=== PATIENT | female | born 1955 | race Caucasian/White ===

== ENCOUNTER 2019-06-18 17:28 | Inpatient (IN) | payer OTHER, SELFPAY ==
--- NOTE | 2019-06-18 | DI.ECHO.S_ITS ---
[facility]+ [facility] +---------+ : : [address] : : : : [id number] : : : : Phone: [phone] Echocardiogram Report + + :Name: RAMIRO FERNANDEZ Study Date: 06/20/2019 Height: 62 in : :Hospital Weight: 112 lb : : Gender: Female BSA: 1.5 m2 : :: 1955 Age: 64 yrs BP: 138/102 mmHg: :Reason For Study: TIA : :Ordering Physician: Bhumika : :Hospitalist Performed By: LRF : :Referring: LUIS GUZMAN : + + Interpretation Summary The atrial septum is aneurysmal. Contrast injection shows early passage of a trivial amount of bubbles from right to the left, likely via a small PFO. The left ventricle is normal in size and wall thickness. The left ventricular ejection fraction is normal. Left ventricular wall motion is normal. Diastolic parameters suggest a relaxation abnormality of the left ventricle, consistent with probable normal filling pressures. The right ventricle is normal in size and function. The right ventricular systolic pressure is estimated to be at least 21 mmHg based on an estimated right atrial pressure of 3 mm Hg. No hemodynamically significant valvular abnormalities. There is no prior echocardiogram noted for this patient. Procedure: A two-dimensional transthoracic echocardiogram with color flow and Doppler was performed. The study quality was technically adequate. There is no prior echocardiogram noted for this patient. The injection was performed through an intravenous line in the right arm. A saline contrast injection was performed to assess for cardiac shunting. The patient was in sinus bradycardia with heart rates between 52-66 bpm during the exam. Left Ventricle: The left ventricle is normal in size and wall thickness. The ejection fraction is estimated to be 55-60%. The left ventricular ejection fraction is normal. Left ventricular wall motion is normal. Diastolic parameters suggest a relaxation abnormality of the left ventricle, consistent with probable normal filling pressures. Right Ventricle: The right ventricle is normal in size and function. Atria: Both atria are normal in size. The atrial septum is aneurysmal. Contrast injection shows early passage of a trivial amount of bubbles from right to the left, likely via a small PFO. Mitral Valve: The mitral valve is normal in structure and function. There is mild mitral regurgitation. Aortic Valve: The aortic valve is trileaflet. The aortic valve opens well. No aortic regurgitation is present. Tricuspid Valve: The tricuspid valve is normal in structure and function. The right ventricular systolic pressure is estimated to be at least 21 mmHg based on an estimated right atrial pressure of 3 mm Hg. There is mild tricuspid regurgitation. Pulmonic Valve: The pulmonic valve is normal in structure and function. There is mild pulmonic regurgitation. Great Vessels: The aortic root is normal size. The aortic arch is normal in size. The ascending aorta is normal in size. The IVC is of normal diameter and collapses greater than 50% with a sniff. This suggests a low right atrial pressure of 3 mm Hg. Pericardium/ Pleura There is no pericardial effusion. MMode/2D Measurements & Calculations LVIDd: 4.2 cm LVOT diam: 1.9 cm LVIDs: 3.0 cm Ao root diam: 2.6 cm FS: 28.1 % asc Aorta Diam: 2.6 cm EPSS: 0.60 cm Ao Arch Diam (Prox Trans): 2.3 cm IVSd: 0.66 cm LVPWd: 0.49 cm LV amador. diameter/BSA (cm/m^2): 2.8 LV sys. diameter/BSA (cm/m^2): 2.0 LA A2 area: 15.9 cm2 RA long axis: 4.4 cm LA A4 area: 14.8 cm2 RA area: 12.8 cm2 LA length (vol): 4.1 cm RA vol: 32.2 ml LA vol: 48.4 ml RA : 21.5 ml/m2 LA vol index: 32.4 ml/m2 IVC diam: 1.2 cm RVD1 (basal): 2.5 cm RVD2 (mid): 1.9 cm TAPSE: 2.2 cm Doppler Measurements & Calculations Ao V2 max: 122.5 cm/sec LVOT Max Yosi: 107.4 cm/sec Ao V2 mean: 80.6 cm/sec LV V1 max P.6 mmHg Ao max P.0 mmHg LV V1 VTI: 21.1 cm Ao mean P.1 mmHg MICHELLE(I,D): 2.0 cm2 Ao V2 VTI: 28.1 cm MICHELLE(V,D): 2.4 cm2 sev ratio: 0.75 MICHELLE indexed to BSA (cm^2/m^2): 1.4 MV E max yosi: 67.2 cm/sec TR max yosi: 203.0 cm/sec MV A max yosi: 84.5 cm/sec TR max P.5 mmHg MV E/A: 0.80 Med Peak E' Yosi: 6.7 cm/sec E/E' med: 10.0 Lat Peak E' Yosi: 10.0 cm/sec E/E' lat: 6.7 E/e' average: 8.4 MV dec time: 0.20 sec SV(LVOT): 57.2 ml Electronically signed by: Genaro Logan M.D. on Reading Physician:06/20/2019 04:19 PM
--- NOTE | 2019-06-18 17:32 | ED_ITS ---
HPI - General Adult General Chief complaint: Neuro Symptoms/Deficit Stated complaint: thinks she is having a stroke Time Seen by Provider: 06/18/19 17:31 Source: patient Mode of arrival: Ambulatory Limitations: no limitations History of Present Illness HPI narrative: 64-year-old female who arrived the emergency department by private vehicle for concerns of potentially having a stroke. She states that approximately 3.5 hours prior to arrival here in the emergency department patient states she had an onset which he thinks is right-sided weakness. She also states she felt dizzy. Was not a room spinning sensation but and unsteadiness. No headache. No vision changes. She when laid down and slept for a while when she woke up she has felt the same. She did go out into her galvan to attend her horses. She was able to walk however while she was in the field she thought that she was very unsteady had had weakness on her right side. Has never had anything like this in the past. Did take an aspirin prior to arrival. Related Data Home Medications Medication Instructions Recorded Confirmed bupropion HCl [Wellbutrin SR] 150 mg PO DAILY 06/18/19 06/18/19 metoprolol succinate 50 mg PO DAILY 06/18/19 06/18/19 Allergies Allergy/AdvReac Type Severity Reaction Status Date / Time No Known Drug Allergies Allergy Verified 06/18/19 17:37 Review of Systems Constitutional Constitutional: Denies fatigue, Denies fever(s), Denies frequent falls, Denies headache(s) and Reports weakness Eyes Eyes: Denies loss of vision ENT Ears, Nose, Mouth, and Throat: Denies vertigo, Reports dizziness, Denies headache(s) and Reports disequilibrium Cardiovascular Cardiovascular: Denies chest pain, Denies palpitations and Denies dyspnea Respiratory Respiratory: Denies cough and Denies dyspnea Gastrointestinal Gastrointestinal: Denies abdominal pain, Denies nausea and Denies vomiting Genitourinary Genitourinary: Denies dysuria and Denies vaginal discharge Musculoskeletal Musculoskeletal: Reports abnormal gait, Denies myalgias, Denies arthralgias, Denies limited range of motion, Reports muscle weakness, Denies numbness, Denies radiating pain into limb and Denies tingling Integumentary/Breasts Skin/Breast: Denies lesions and Denies rash Neurologic Neurologic: Reports abnormal speech, Reports abnormal gait, Denies behavioral changes, Denies confusion, Denies vertigo, Reports dizziness, Denies frequent falls, Denies headache(s), Reports lack of coordination, Denies loss of vision, Denies numbness, Denies restless legs, Denies seizure-like activity, Denies tingling, Denies paresthesias, Reports disequilibrium and Reports weakness Psychiatric Psychiatric: Denies anxiety, Denies behavioral changes and Denies confusion Endocrine Endocrine: Denies fatigue and Denies palpitations Hematologic/Lymphatic Hematologic/Lymphatic: Denies easy bleeding and Denies easy bruising Allergic/Immunologic Allergic/Immunologic: Denies urticaria Patient History Medical History Former smoker (Acute) Hypertension (Acute) Social History marital status: lives independently: Yes Exam Initial Vital Signs Initial Vital Signs: Vital Signs Pulse Rate 62 06/18/19 18:00 Respiratory Rate 16 06/18/19 18:00 Blood Pressure 167/88 H 06/18/19 18:00 Pulse Oximetry 100 06/18/19 18:00 Const General: cooperative, comfortable, well developed and well groomed Limitations: mental status not altered HENAK Head: normal to inspection and normocephalic Face and sinus: normal facial exam Mouth: oral mucosae normal Eyes Pupils: PERRL EOM: EOM intact bilaterally Resp Effort & Inspection: normal respiratory effort Auscultation: clear to auscultation bilaterally Cardio Rate: regular rate Rhythm: regular rhythm Pulses: radial pulses present GI Inspection: non-distended Palpation: soft and No firm Skin Lesions: no lesions Rashes: no rashes Neuro General: alert, awake and oriented x3 Cranial Nerves: CN's II-XI intact bilaterally Cognition: normal cognition Speech: speech normal Gait: ataxic Motor: strength 5/5 throughout, no pronator drift, No fasciculations and No tremor Sensory Exam: no sensory deficits noted DTR's: Rt Biceps: 2+, Lt Biceps: 2+, Rt Patellar: 2+ and Lt Patellar: 2+ Coordination: gyvgqe-mk-anpq test normal Extrem General: normal to inspection, capillary refill normal and No edema Psych Appearance: well kempt Scores GCS Anne coma scale eye opening: Spontaneous Anne coma scale verbal response: Orientated Anne coma scale motor response: Obey commands Anne coma scale total score: 15 NIH Stroke Scale Level of Conciousness: Alert, keenly responsive Ask month/age: Answers both questions correctly. Open/close eyes, close hand: Performs both tasks correctly Best gaze horizontal: Normal Visual galvan: No visual loss Facial palsy: Normal symetrical movement Left arm drift: No drift for full 10 sec Right arm drift: No drift for full 10 sec Left leg drift: No drift for full 10 sec Right leg drift: No drift for full 10 sec Limb ataxia: Absent Sensory on face/arms/legs: Normal, no sensory loss Best language: No aphasia, normal Dysarthria: Normal Extinction or inattention: No abnormality Total NIH Stroke scale score: 0 Course Orders Ordered: ED Orders 06/18/19 17:33 CT head/brain wo con Stat EKG-12 Lead Stat 06/18/19 17:39 CT angio head and neck Stat 06/18/19 17:41 Complete Blood Count AUTO DIFF Stat Comprehensive Metabolic Panel Stat Ethanol (ETOH) Stat Lipase Stat Partial Thromboplastin Time Stat Prothrombin Time INR Stat Sodium Chloride (Normal Saline 0.9%) 1,000 mls @ 125 mls/hr IV CONT SAGAR Last Admin: 06/18/19 19:59 Dose: Not Given Documented by: JANA Vital Signs Vital signs: Vital Signs - 8 hr 06/18/19 18:00 06/18/19 18:57 06/18/19 19:55 Pulse Rate 62 59 L 51 L Respiratory Rate 16 17 13 Blood Pressure [Left Arm] 167/88 H 153/75 H 143/89 H Pulse Oximetry 100 97 100 Medical Decision Making Lab Data Lab results reviewed: Yes I reviewed the patient's lab results. Result diagrams: 06/18/19 17:41 06/18/19 17:41 Labs: Lab Results 06/18/19 06/18/19 06/18/19 Range/Units 17:41 17:41 17:41 WBC 7.7 (4.5-11.0) X10^3/uL RBC 4.30 (4.0-5.2) X10^6/uL Hgb 14.1 (12.0-16.0) g/dL Hct 41.5 (36-46) % MCV 96.6 (80-100) fL MCH 32.9 (26-34) PG MCHC 34.0 (30-36) % RDW 12.3 (11.6-14.8) % Plt Count 329 (150-400) X10^3/uL Neut % (Auto) 60.4 (50-75) % Lymph % (Auto) 29.2 (25-40) % [place] % (Auto) 7.2 (3-14) % Eos % (Auto) 2.3 (2-4) % Baso % (Auto) 0.9 (0-2) % Neut # (Auto) 4700 (7439-5123) /uL Lymph # (Auto) 2300 (7074-1625) /uL [place] # (Auto) 600 (0-900) /uL Eos # (Auto) 200 (0-450) /uL Baso # (Auto) 100 (0-100) /uL PT 10.9 (10.1-12.7) SECONDS INR 1.0 (0.9-1.3) APTT 31 (26.4-36.2) SECONDS Sodium 140 (137-145) mmol/L Potassium 3.7 (3.4-5.1) mmol/L Chloride 105 (98-107) mmol/L Carbon Dioxide 24 (22-32) mmol/L BUN 14 (7-17) mg/dL Creatinine 0.70 (0.52-1.04) mg/dL Estimated GFR > 60.0 (>60) mL/min BUN/Creatinine Ratio 20.0 (6-22) Glucose 91 (80-110) mg/dL Calcium 9.3 (8.4-10.2) mg/dL Total Bilirubin 0.2 (0.2-1.3) mg/dL AST 28 (14-36) IU/L ALT 17 (<35) IU/L Alkaline Phosphatase 78 (38-126) U/L Total Protein 7.2 (6.3-8.2) g/dL Albumin 4.2 (3.5-5.0) g/dL Globulin 3.0 (1.7-4.1) g/dL Albumin/Globulin Ratio 1.4 (1.0-2.8) Lipase 75 (23-300) U/L Ethyl Alcohol < 10 ( - 10) mg/dL Imaging Data CT scan - head: Radiologist's Impression: [address] [address] [address] Scan Report Signed Patient: Emma Villanueva LMR#: [id number] : 6Acct:[id number] Age/Sex: 64 / FDate of Service: 06/18/19 Loc: ED Accession Number: [id number] Procedure: CT head/brain wo con Ordering Provider: Francisco Shrestha D.O. PROCEDURE: CT HEAD/BRAIN WO CON INDICATIONS: Code Stroke TECHNIQUE: Noncontrast 4.5 mm thick angled axial sections acquired from the foramen magnum to the vertex, with coronal and sagittal reformats. For radiation dose reduction, the following was used: automated exposure control, adjustment of mA and/or kV according to patient size. COMPARISON: None. FINDINGS: Image quality: Excellent. CSF spaces: Basal cisterns are patent. No extra-axial fluid collections. The ventricles are symmetric in size and shape. Brain: No intracranial bleeds or masses. There is cerebral volume loss for age, with resultant ventricular and sulcal prominence. There are periventricular and deep white matter chronic small vessel ischemic changes. There is intracranial internal carotid artery atherosclerosis. Skull and face: Calvarium and visualized facial bones appear intact, without suspicious lesions. Sinuses: Visualized sinuses and mastoids are clear. IMPRESSION: No acute intracranial hemorrhage is seen. No acute intracranial process is seen. Note: Case discussed by telephone with Dr. Shrestha at 5:46 PM on 06/18/19. Dictated by: Paramjit Benoit M.D. on 06/18/2019 at 17:44 Approved by: Paramjit Benoit M.D. on 06/18/2019 at 17:47 CTA - brain/neck: Radiologist's Impression: [place] [address] CT Scan Report Signed Patient: Emma Villanueva LMR#: [id number] : 6Acct:[id number] Age/Sex: 64 / FDate of Service: 06/18/19 Loc: ED Accession Number: [id number] Procedure: CT angio head and neck Ordering Provider: Francisco Shrestha D.O. PROCEDURE: CT ANGIO HEAD AND NECK INDICATIONS: Code stroke TECHNIQUE: Pre-contrast images were performed earlier in the day and not repeated. After the administration of intravenous contrast, 1 mm thick sections acquired from the aortic arch through the [place] of [place]. Post-contrast 4.5 mm thick sections then re- acquired from the foramen magnum to the vertex. 3-dimensional ubwzqpr-gqrrefuec-sjbjyubtqj ( MIP) and/or volume rendering reformats were acquired of the central intracranial vasculature and neck separately. COMPARISON: [facility], CT, CT HEAD/BRAIN WO CON, 06/18/2019, 17:30. FINDINGS: Image quality: Intracranial images are mildly limited by venous contamination. BRAIN: CSF spaces: Ventricles are normal in size and shape. Basal cisterns are patent. No extra-axial fluid collections. Brain: No midline shift. No intracranial bleeds or masses. Kinney-white matter interface appears intact. Skull and face: Calvarium and facial bones appear intact, without suspicious l esions. Orbits appear normal. Sinuses: Sinuses and mastoids are clear. HEAD CT ANGIOGRAPHY: Anterior circulation: Intracranial internal carotid arteries are normal in size and flow. The flow within the paired anterior cerebral arteries is normal and symmetric. The flow within the middle cerebral arteries is normal and symmetric. The anterior communicating artery is seen. No aneurysms are seen. Posterior circulation: Visualized portions of the vertebral arteries demonstrate normal caliber, and join to form a normal appearing basilar artery. Flow within the posterior cerebral arteries is normal and symmetric. No aneurysms are seen. NECK CT ANGIOGRAPHY: Carotid system: The great vessels demonstrate a conventional anatomy as they arise from the aortic arch. The origins of the common carotid arteries appear patent. The common carotid arteries demonstrate normal caliber and courses. The bifurcation regions demonstrate mild irregularity, yet without a hemodynamically significant stenosis. The internal carotid arteries demonstrate normal calibers and courses. Posterior circulation: The origins of the vertebral arteries both appear widely patent. The more superior extracranial portions of both vertebral arteries also demonstrate normal courses and calibers. They join to form a normal appearing basilar artery. Soft tissues: Visualized neck soft tissues demonstrate no suspicious abnormalities. There is a cavitary lesion seen involving the right upper lobe with a thick wall, as on series 4 image 157 measures 1.3 cm. Bones: No suspicious bony lesions. Visualized cervical spine appears normally aligned. Relatively prominent cervical spine degenerative changes are seen. IMPRESSION: No significant intracranial arterial abnormality is seen. Within the arteries of the neck, no hemodynamically significant stenosis can be seen. 1.3 cm cavitary lesion seen involving the right lung apex. Please consider a dedicated chest CT with contrast (when clinically appropriate) evaluate for additional pulmonary lesions. Any quantitative measurements of stenosis were performed using NASCET criteria. Dictated by: Paramjit Benoit M.D. on 06/18/2019 at 17:58 Approved by: Paramjit Benoit M.D. on 06/18/2019 at 18:02 ECG Data Attestation: I personally reviewed and interpreted this ECG as follows: Prior ECG tracings: not available for review Interpretation: Sinus rhythm Ventricular rate is 60 First degree AV block as needed oval 216 Normal axis Normal QRS Normal QTC No ST T wave changes MDM Narrative Medical decision making narrative: Head CT and CTA are negative. Has an NIH score of 0. When patient does stand she does fall to the right. This happens with her eyes open in her and her eyes closed. She does seem to track her right foot when she walks. When she is lying in the bed she does have 5/5 strength bilateral upper and lower extremities. I did discuss the case with the on-call neurology at [facility] who agreed that patient does not meet criteria for tPA or code IR. She did agree with admitting the patient for an MRI. She did not feel the patient needed an emergent MRI. Patient did take a full aspirin prior to arrival. I did discuss the case with ELBA Nicole the night hospitalist who will admit the patient for further evaluation and treatment. I did discuss the admission with the patient who expressed understanding agreement. Discharge Plan Departure Patient Disposition: Home Clinical Impression: Transient cerebral ischemia Qualifiers: Transient cerebral ischemia type: unspecified Qualified Code(s): G45.9 - Transient cerebral ischemic attack, unspecified Discharge Date/Time: 06/18/19 20:54 Admit Date/Time: 06/18/19 20:20 Admit Provider: Arlene Nicole
--- NOTE | 2019-06-18 17:39 | DI.CT.S_ITS ---
PROCEDURE: CT ANGIO HEAD AND NECK INDICATIONS: Code stroke TECHNIQUE: Pre-contrast images were performed earlier in the day and not repeated. After the administration of intravenous contrast, 1 mm thick sections acquired from the aortic arch through the [place] of [place]. Post-contrast 4.5 mm thick sections then re-acquired from the foramen magnum to the vertex. 3-dimensional jfpsjxs-hddvemeen-kkkyfurvrs (MIP) and/or volume rendering reformats were acquired of the central intracranial vasculature and neck separately. COMPARISON: [facility], CT, CT HEAD/BRAIN WO CON, 06/18/2019, 17:30. FINDINGS: Image quality: Intracranial images are mildly limited by venous contamination. BRAIN: CSF spaces: Ventricles are normal in size and shape. Basal cisterns are patent. No extra-axial fluid collections. Brain: No midline shift. No intracranial bleeds or masses. Kinney-white matter interface appears intact. Skull and face: Calvarium and facial bones appear intact, without suspicious lesions. Orbits appear normal. Sinuses: Sinuses and mastoids are clear. HEAD CT ANGIOGRAPHY: Anterior circulation: Intracranial internal carotid arteries are normal in size and flow. The flow within the paired anterior cerebral arteries is normal and symmetric. The flow within the middle cerebral arteries is normal and symmetric. The anterior communicating artery is seen. No aneurysms are seen. Posterior circulation: Visualized portions of the vertebral arteries demonstrate normal caliber, and join to form a normal appearing basilar artery. Flow within the posterior cerebral arteries is normal and symmetric. No aneurysms are seen. NECK CT ANGIOGRAPHY: Carotid system: The great vessels demonstrate a conventional anatomy as they arise from the aortic arch. The origins of the common carotid arteries appear patent. The common carotid arteries demonstrate normal caliber and courses. The bifurcation regions demonstrate mild irregularity, yet without a hemodynamically significant stenosis. The internal carotid arteries demonstrate normal calibers and courses. Posterior circulation: The origins of the vertebral arteries both appear widely patent. The more superior extracranial portions of both vertebral arteries also demonstrate normal courses and calibers. They join to form a normal appearing basilar artery. Soft tissues: Visualized neck soft tissues demonstrate no suspicious abnormalities. There is a cavitary lesion seen involving the right upper lobe with a thick wall, as on series 4 image 157 measures 1.3 cm. Bones: No suspicious bony lesions. Visualized cervical spine appears normally aligned. Relatively prominent cervical spine degenerative changes are seen. IMPRESSION: No significant intracranial arterial abnormality is seen. Within the arteries of the neck, no hemodynamically significant stenosis can be seen. 1.3 cm cavitary lesion seen involving the right lung apex. Please consider a dedicated chest CT with contrast (when clinically appropriate) evaluate for additional pulmonary lesions. Any quantitative measurements of stenosis were performed using NASCET criteria. Dictated by: Paramjit Benoit M.D. on 06/18/2019 at 17:58 Approved by: Paramjit Benoit M.D. on 06/18/2019 at 18:02
[2019-06-18 17:48] LABS: Add Manual Diff / Slide Review NO; Basophils Absolute Auto 100 /uL (0-100); Basophils Percent Auto 0.9 % (0-2); Eosinophils Absolute Auto 200 /uL (0-450); Eosinophils Percent Auto 2.3 % (2-4); Hematocrit 41.5 % (36-46); Hemoglobin 14.1 g/dL (12.0-16.0); Lymphocytes Absolute Auto 2300 /uL (1100-4500); Lymphocytes Percent Auto 29.2 % (25-40); Mean Corpuscular Hemoglobin 32.9 PG (26-34); Mean Corpuscular Volume 96.6 fL (80-100); Monocytes Absolute Auto 600 /uL (0-900); Monocytes Percent Auto 7.2 % (3-14); Neutrophils Absolute Auto 4700 /uL (1500-7000); Neutrophils Percent Auto 60.4 % (50-75); Platelet Count 329 X10^3/uL (150-400); Red Cell Distribution Width 12.3 % (11.6-14.8); White Blood Cell Count 7.7 X10^3/uL (4.5-11.0)
[2019-06-18 18:00] VITALS: BP 167/88; PULSE 62; RESP 16; O2SAT 100
[2019-06-18 18:01] LABS: Prothrombin Time 10.9 SECONDS (10.1-12.7)
[2019-06-18 18:04] LABS: PTT Partial Thromboplastin Tim 31 SECONDS (26.4-36.2)
[2019-06-18 18:09] LABS: Alanine Aminotransferase 17 IU/L (<35); Albumin 4.2 g/dL (3.5-5.0); Albumin Globulin Ratio 1.4 (1.0-2.8); Alkaline Phosphatase 78 U/L (38-126); Aspartate Aminotransferase 28 IU/L (14-36); Bilirubin Total 0.2 mg/dL (0.2-1.3); Blood Urea Nitrogen 14 mg/dL (7-17); Calcium 9.3 mg/dL (8.4-10.2); Carbon Dioxide 24 mmol/L (22-32); Chloride 105 mmol/L (98-107); Estimated Glomerular Filt Rate > 60.0 mL/min (>60); Ethanol (ETOH) < 10 mg/dL; Glucose 91 mg/dL (80-110); HEMOLYSIS < 15 (0-50); Lipase 75 U/L (23-300); Potassium 3.7 mmol/L (3.4-5.1); Sodium 140 mmol/L (137-145); Total Protein 7.2 g/dL (6.3-8.2)
[2019-06-18 18:57] VITALS: BP 153/75; PULSE 59; RESP 17; O2SAT 97
[2019-06-18 19:55] VITALS: BP 143/89; PULSE 51; RESP 13; O2SAT 100
--- NOTE | 2019-06-18 20:05 | PC.NURSE ---
Late entry: Pt arrived via private vehicle. She noticed today @ 1430 that she was dragging her right leg and felt unsteady with weakness in her right side. Upon exam, pt is leaning to her right, Hand grasps, foot / leg strength all equally strong. No attaxia w/ limbs but leans to right when standing and feels as if she is falling to right. Unsteady gait upon ambulation. Denies recent trauma.
[2019-06-18 20:36] VITALS: BP 143/89; PULSE 56; RESP 14
[2019-06-18 21:31] VITALS: BP 140/96; PULSE 58; RESP 16; TEMP 36.6; O2SAT 97
[2019-06-18 22:04] VITALS: BMI 20.5
--- NOTE | 2019-06-18 22:58 | PC.NURSE ---
Admit note: Emma brought from ER via wheelchair, able to transfer self to bed, took off boots, declined to take off jeans saying she was really cold. Warm blankets given. IV saline locked. Arlene INGRAM in room to see patient. I clarified IVF with her, she said to DC the previous ER order for IV fluids. Tele SR. Pt denies swallow issues, new order for low sodium diet given. Pt given ice water & yogurt by request. Admission assessment complete. Pt instructed not to get OOB without staff standby assistance, and instructed to call nurse if she feels any weakness in extremities or sudden headache pain. Oriented to room & call button system.
[2019-06-18 23:40] VITALS: BP 142/89; PULSE 58; RESP 16; TEMP 36.4; O2SAT 98
[2019-06-19] VITALS (7 sets, daily range): BP systolic 116–136; BP diastolic 66–87; PULSE 56–69; RESP 14–18; TEMP 36.7–37.2; O2SAT 96–99
--- NOTE | 2019-06-19 01:05 | P.HP_ITS ---
History of Present Illness History of Present Illness Date Patient Seen: 06/18/19 Time Patient Seen: 21:00 Chief complaint: thinks she is having a stroke Narrative: Emma Machado is a pleasant 64-year-old female with a history of hypertension and anxiety presented today with a 3 hour history of right-sided weakness, footdrop and a concerned she was having a stroke. Per the patient at 2:00 p.m. she felt ?dizzy in weird? and also tired so she laid down for 45 minutes. She woke up to take care of farm animals on her property and felt like she had no control over right leg. Her drove her over the field and she managed to take care of her animals ambulating by dragging her right leg. She also noticed that her speech was worsening and that she felt like her right hand ?belonged to someone else, denied tingling or numbing but felt that her right upper extremity ?was not a part of me. 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 and given her symptoms was very aware of what time they started. She has had a history of palpitations and heart floaters and believe she may have undergone a event monitoring study. She states that worsens with activity. She has an appointment August [address] Larios due to the increasing frequency of these symptoms. In the emergency department she was noted to have a NIH scale of 0, however the paramedics when they evaluated her, they noted she had an ataxic gait with foot drop and a positive Romberg. Patient History Medical History (Updated 06/19/19 @ 01:13 by NATALY Stanley) Former smoker (Acute) Hypertension (Acute) Family & Social History Family History Father FH: CABG (coronary artery bypass surgery) Mother Atrial fibrillation Pacemaker Social History: household members spouse Prior Living Arrangements House lives independently Yes Safety & Behavioral: Feels Safe in Current Yes Environment Been Physically Hurt or No Threatened By a Person Suicidal Ideation Description None Tobacco & Substance use: Tobacco type cigarettes Smoking Status Former smoker Smoking packs per day 1 alcohol intake current alcohol intake frequency holiday/special occasion Meds Home Medications and Allergies Home Medications Medication Instructions Recorded Confirmed Type bupropion HCl [Wellbutrin SR] 150 mg PO DAILY 02/04/20 02/04/20 History metoprolol succinate 50 mg PO DAILY 06/18/19 06/18/19 History Allergies Allergy/AdvReac Type Severity Reaction Status Date / Time No Known Drug Allergies Allergy Verified 06/18/19 17:37 Review of Systems Review of Systems ROS: Yes All systems reviewed with the patient and are negative except as otherwise documented Exam Vital Signs (past 8 hours): - 06/18/19 18:00 06/18/19 18:57 06/18/19 19:55 Temperature Pulse Rate 62 59 L 51 L Respiratory Rate 16 17 13 Blood Pressure Blood Pressure [Left Arm] 167/88 H 153/75 H 143/89 H Pulse Oximetry 100 97 100 06/18/19 20:36 06/18/19 21:31 06/18/19 23:40 Temperature 97.8 F 97.6 F Pulse Rate 56 L 58 L 58 L Respiratory Rate 14 16 16 Blood Pressure 140/96 H 142/89 H Blood Pressure [Left Arm] 143/89 H Pulse Oximetry 97 98 Oxygen Delivery Method Room Air Oxygen Flow Rate 0 Narrative Exam Narrative: Gen: Alert, oriented, well-developed 64 year y.o. female, anxious HEENT: normocephalic, atraumatic, conjunctiva clear, sclera non-icteric, oral mucosa pink and moist Neck: supple, full ROM Resp: Lungs CTA, non-labored breathing CV: RRR, no murmur or rubs Abd: soft, non-tender, normoactive BTs Skin: no lesions or rashes, dry and intact Neuro: Alert and oriented X 4 w/no focal deficits, negative Romberg Extremities: moves all 4 extremities, is ambulatory, negative Janet?s sign Psyche: normal mood and affect. Objective Labs Result Diagrams: 06/18/19 17:41 06/18/19 17:41 Labs: Laboratory Results - last 24 hr 06/18/19 06/18/19 06/18/19 17:41 17:41 17:41 WBC 7.7 RBC 4.30 Hgb 14.1 Hct 41.5 MCV 96.6 MCH 32.9 MCHC 34.0 RDW 12.3 Plt Count 329 Neut % (Auto) 60.4 Lymph % (Auto) 29.2 Cowley % (Auto) 7.2 Eos % (Auto) 2.3 Baso % (Auto) 0.9 Neut # (Auto) 4700 Lymph # (Auto) 2300 Cowley # (Auto) 600 Eos # (Auto) 200 Baso # (Auto) 100 PT 10.9 INR 1.0 APTT 31 Sodium 140 Potassium 3.7 Chloride 105 Carbon Dioxide 24 BUN 14 Creatinine 0.70 Estimated GFR > 60.0 BUN/Creatinine Ratio 20.0 Glucose 91 Calcium 9.3 Total Bilirubin 0.2 AST 28 ALT 17 Alkaline Phosphatase 78 Total Protein 7.2 Albumin 4.2 Globulin 3.0 Albumin/Globulin Ratio 1.4 Lipase 75 Ethyl Alcohol < 10 Assessment & Plan Assessment & Plan narrative: Emma Goss will be admitted for further workup and managment of a TIA 1. Suspected TIA, acute, present on admission * Patient will undergo Doppler echocardiogram tomorrow * MR stroke without contrast in the morning * She is now written for aspirin and Plavix however if her MRI is negative we can consider putting her on apixaban 5 mg p.o. b.i.d. * Lipid panel in the morning, start a statin 2. Essential hypertension, chronic, suboptimally controlled * She currently takes metoprolol succinate 50 mg p.o. daily, this may need to be increased 3. Depression, chronic and stable * Continue home dose of bupropion sustained release 150 mg p.o. daily FEN: IV saline lock, low-sodium diet, chemistries in the am Patient is admitted inpatient her stay is likely to exceed 2 midnights. VTE Prophylaxis: Heparin 5000 units twice daily subcu Medications reconciled: Yes Disposition: Probable discharge with follow-up with Neurology and Cardiology for event monitoring Code Status: Full code Quality VTE Deep Vein Thrombosis/Pulmonary Embolism Present on Admission: No
[2019-06-19 06:16] LABS: Add Manual Diff / Slide Review NO; Basophils Absolute Auto 0 /uL (0-100); Basophils Percent Auto 0.7 % (0-2); Eosinophils Absolute Auto 200 /uL (0-450); Eosinophils Percent Auto 3.3 % (2-4); Hematocrit 39.5 % (36-46); Hemoglobin 13.6 g/dL (12.0-16.0); Lymphocytes Absolute Auto 2400 /uL (1100-4500); Lymphocytes Percent Auto 44.5 % (25-40); Mean Corpuscular HGB Conc 34.4 % (30-36); Mean Corpuscular Hemoglobin 32.9 PG (26-34); Mean Corpuscular Volume 95.8 fL (80-100); Monocytes Absolute Auto 500 /uL (0-900); Monocytes Percent Auto 8.8 % (3-14); Neutrophils Absolute Auto 2300 /uL (1500-7000); Neutrophils Percent Auto 42.7 % (50-75); Platelet Count 290 X10^3/uL (150-400); Red Blood Cell Count 4.13 X10^6/uL (4.0-5.2); Red Cell Distribution Width 12.5 % (11.6-14.8); White Blood Cell Count 5.4 X10^3/uL (4.5-11.0)
[2019-06-19 06:26] LABS: Cholesterol 199 mg/dL (140-199); HDL Cholesterol 64 mg/dL (40-60); LDL Cholesterol Calculated 122 mg/dL (<100); Triglycerides 64 mg/dL (35-150)
[2019-06-19 06:27] LABS: Alanine Aminotransferase 16 IU/L (<35); Albumin 3.8 g/dL (3.5-5.0); Albumin Globulin Ratio 1.4 (1.0-2.8); Alkaline Phosphatase 65 U/L (38-126); Aspartate Aminotransferase 25 IU/L (14-36); BUN Creatinine Ratio 17.1 (6-22); Bilirubin Total 0.4 mg/dL (0.2-1.3); Blood Urea Nitrogen 12 mg/dL (7-17); Carbon Dioxide 26 mmol/L (22-32); Chloride 106 mmol/L (98-107); Estimated Glomerular Filt Rate > 60.0 mL/min (>60); Globulin 2.7 g/dL (1.7-4.1); Glucose 87 mg/dL (80-110); HEMOLYSIS < 15 (0-50); Potassium 3.3 mmol/L (3.4-5.1); Sodium 140 mmol/L (137-145); Total Protein 6.5 g/dL (6.3-8.2)
--- NOTE | 2019-06-19 09:20 | CM.DANOTE ---
Addendum entered by Tran Bang R.N. 06/19/19 12:32: Physical therapy is recommending high level of P.T. in inpatient rehab. Patient is thinking about it. Have a message out to [facility] to see if they have any availabilities. Left them a message to call this case manage back. Addendum entered by Tran Bang R.N. 06/19/19 11:26: Testing confirmed acute infarct. Will see how patient does with physical therapy and will be available for any resources that may be needed for patient. Original Note: DCP: Case received, EMR reviewed and met with patient. Introduced self and role. Was able to meet with patient and obtain baseline history and activity information. DCP assessment completed with information currently available. Patient is a 64 year old female who admitted yesterday evening to the care of the hospitalist team. PCP: Dr. Yeh. Payer: confirmed: [employer]. Patient came to the hospital via family vehicle secondary to right sided weakness and weakness. Patient was concerned that she might be having a stroke. Patient currently holds diagnosis of TIA, and is expected to have MRI today. Met with patient. She is alert and oriented. 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 Met with her in her room. She was teary, when talking about her job. Stated, I have to remember to remind them to give me my antidepressants. Patient resides in [place] with her spouse, Emeterio. Asked her if she had ever gone to counseling regarding her depression. Stated, she had some time ago. Patient will be having an MRI today. P: DCP will continue to follow and be available for any needs. She should be able to go home when she is medically stable. Tran Bang RN/Allergy Nurse
[2019-06-19] MEDS: METOPROLOL ER 50 MG TABLET PO (09:52)
[2019-06-19] MEDS: buPROPion SR 150 MG TAB PO (09:54)
[2019-06-19] MEDS: HEPARIN 5,000 UNIT/ML VIAL 5000 UNIT SUBCUT ×2 (09:54→21:59)
[2019-06-19 09:55] LABS: Hemoglobin A1C% w Est Avg Glu 5.1 % (4.0-6.0)
--- NOTE | 2019-06-19 09:59 | DI.MRI.S_ITS ---
PROCEDURE: MR STROKE Pre- and post-contrast brain MRI, non-contrast brain MR angiogram, pre- and postcontrast neck MR angiogram INDICATIONS: Suspected TIA TECHNIQUE: Brain: Noncontrast axial T1 spin echo, axial T2 fast spin echo, sagittal and axial FLAIR, coronal T2 fast spin echo, axial gradient echo, axial diffusion and ADC through the brain. After the administration of contrast, axial 3D VIBE of the cranial vasculature and brain. Brain MRA: Non-contrast 3-D time of flight MR angiogram, with multiple guacqpx-cdvmowbqd-qejxhsfsub (MIP) reformats performed. Neck MRA: Axial and sagittal TruFISP through the neck. Coronal dynamic MR angiogram during administration of contrast in the arterial and venous phases, with 3-dimenstional syyipsm-nmzvtvoyq-kciwhacgnl (MIP) reformats constructed from subtraction images. COMPARISON: [facility], CT, CT ANGIO HEAD AND NECK, 06/18/2019, 17:37. FINDINGS: Image quality: Excellent. BRAIN: CSF spaces: Ventricles are normal in size and shape. Basal cisterns are patent. No extra-axial fluid collections. Brain: No intracranial bleeds or mass effects. Kinney-white matter interface is normal. Diffusion-weighted sequence demonstrates an acute small lacunar infarct centered in the left basal ganglia and periventricular deep white matter. There is minimal associated cytotoxic edema present. Ventricles are midline. No mass effect the ventricles. Brainstem appears normal. Normal intravascular flow voids are present. No abnormal intracranial enhancement. Skull and face: Calvarial marrow signal is normal. Orbits appear normal. Sinuses: Sinuses and mastoids are clear. BRAIN MR ANGIOGRAM: Anterior circulation: Intracranial internal carotid arteries are normal in size and enhancement. The flow within the paired anterior cerebral arteries is normal and symmetric. The flow within the middle cerebral arteries is normal and symmetric. The anterior communicating artery is seen. No stenoses, occlusions, or aneurysms. Posterior circulation: The visualized portions of the vertebral arteries demonstrate normal caliber, and join to form a normal appearing basilar artery. The flow within the posterior cerebral arteries is normal and symmetric. The No stenoses, occlusions, or aneurysms. NECK MR ANGIOGRAM: Carotids: Great vessels demonstrate a conventional anatomy as they arise from the aortic arch. The origins of the common carotid arteries appear patent. The calibers and courses of both common carotid arteries are normal. The bifurcation regions appear normal bilaterally. The internal carotid arteries demonstrate normal course and caliber. Posterior circulation: The origins of the vertebral arteries appear patent. More superior portions of both vertebral arteries demonstrate normal course and caliber, and join to form a normal appearing basilar artery. Miscellaneous: Subclavian arteries appear patent. Pre-contrast images through the neck show no soft tissue abnormalities. IMPRESSION: BRAIN MRI: 1. Small acute lacunar infarct involving the left basal ganglia and left periventricular deep white matter. Minimal associated cytotoxic edema. BRAIN MR ANGIOGRAM: Unremarkable. No stenosis, occlusion, or aneurysm. NECK MR ANGIOGRAM: Unremarkable. Widely patent internal carotid arteries. Dictated by: Erich Mireles M.D. on 06/19/2019 at 10:54 Approved by: Erich Mireles M.D. on 06/19/2019 at 11:04
--- NOTE | 2019-06-19 10:47 | PT.IIE ---
Medical History (Last Reviewed 06/19/19 @ 01:12 by NATALY Stanley) Former smoker (Acute) Hypertension (Acute) Physical Therapy Inpatient Evaluation/Re-Eval M1 PT/OT-IP Prior Functional Status Start: 06/19/19 12:25 Freq: NEEDED Status: Active Protocol: Document 06/19/19 10:47 AB (Rec: 06/19/19 12:49 AB [id number]) Medical Review Prior Functional Status Medical History Reviewed Yes Communication able to make needs known Mobility and Gait pt stated that she is independent with all mobilities and ambulation without AD Social History Household Members spouse Living Arrangements House Number of Floors (Floors) Two Floors Number of Stairs To Enter/Railing? 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 PT-IP Current Condition Start: 06/19/19 12:25 Freq: NEEDED Status: Active Protocol: Document 06/19/19 10:47 AB (Rec: 06/19/19 12:49 AB [id number]) Physical Therapy Current Condition Current Condition Evaluation Date 06/19/19 Treatment Diagnosis CVA R sided weakness; difficulty in walking Onset Date 06/18/2019 Precautions Other Precautions falls M3 PT-IP Subjective Start: 06/19/19 12:25 Freq: NEEDED Status: Active Protocol: Document 06/19/19 10:47 AB (Rec: 06/19/19 12:49 AB [id number]) Subjective Physical Therapy Visit Type Type Initial Evaluation Visit Start Time 10:47 Visit Stop Time 11:36 Total Visit Minutes 49 Number of SALES AND BUSINESS DEVELOPMENT MANAGER Visits 0 Physical Therapy Visit Comments Patient Comments pt agreeable to do PT Therapy Pain Assessment Pain Present Pain Present Denied Pain M4 PT-IP Mobility and Gait Start: 06/19/19 12:25 Freq: NEEDED Status: Active Protocol: Document 06/19/19 10:47 AB (Rec: 06/19/19 12:49 AB [id number]) PT-Bed Mobility Assessment Supine to Sit Supine to Sit Standby Assistance Sit to Supine Sit to Supine Standby Assistance PT-Transfer Assessment Sit to and From Stand Sit to and from Stand Minimal Assistance,1 Person Assistance,Use of Upper Extremities Equipment Transfer Assistive Device None,Gait Belt,Front Wheeled Walker Orthotic/Prosthetic Devices or Brace: No Transfers Transfer Destination Chair Transfer Technique ambulated Transfer Ability Level of Assist Minimal Assistance,Moderate Assistance,1 Person Assistance ,Use of Upper Extremities Comments Mobility Comments pt completed supine <>sit SBA. completed sit to stand min A and cues with unsteady initial standing requiring min A for balance. completed ambulation in room without AD mod to max A and cues. (+) R knee buckling and LOB requiring max A. Assessed ambulation using SPC and pt completed requiring mod A and cues. completed ambulation using FWW and requires CGA to min A and cues for quads activation. pt completed stair training. pt agreed to sit up on chair. positioned pt on chair. call light and table placed within reach. informed pt regarding recommendation of acute rehab vs home with 05/12 assist and outpt PT. pt stated that she will think about it. Gait Assessment Gait Gait Assistance Required: Contact Guard Assist,Minimum Assistance,Moderate Assistance ,Maximum Assistance Distance (Feet) 150 Able to Maintain Weight Bearing Status Yes During Gait Assistive Devices Assistive Device None,Gait Belt,Straight Cane, Front Wheeled Walker Orthotic/Prosthetic Devices or Brace: No Gait Deviations General Gait Pattern Antalgic,Decreased Stride Length,Decreased Feet Clearance,Narrow Based Gait, Step-to Gait Factors Limiting Gait Function Factors Limiting Gait Function Decreased Activity Tolerance, Decreased Strength, Incoordination,Poor Balance, Poor Safety Awareness Comments Gait Comments pt ambulated in room without AD mod to max A and max cues with (+) R knee buckling. pt presents with unsteady gait with (+) LOB requiring max A and cues. assessed ambulation using SPC and completed requiring mod A and cues for techniques and safety and quad activation. assessed ambulation using FWW and pt completed requiring CGA to min A and cues. recommednign use of FWW at this time. pt stated that she will borrow from the [employer] in [facility]. Stair Climbing Assessment Evaluation Level of Assist On Stairs Contact Guard Assistance, Minimal Assistance,1 Person Assistance Devices Stair Climbing Assistive Devices Front Wheel Walker,Right Railing Technique/Endurance Stair Climbing Direction Ascend and Descend Stair Climbing Technique Step to Step Number of Steps Climbed 3 Query Text: Stair Climbing Set # Repetitions (reps) 1 Comments Stair Climbing Comments pt completed up/down platform step using FWW CGA to min A and cues. completed up/down 3 steps using R rail CGA to min A and cues for safety. pt stated that she is tired and wants to rest and unable to do more steps. PT-Balance Assessment Sitting Balance and Reactions Static Sitting Balance Ability Good Dynamic Sitting Balance Ability Good Standing Balance and Reactions Static Standing Balance Ability Fair Dynamic Standing Balance Ability Poor Device Used without AD M5 PT-IP Objective Assessments Start: 06/19/19 12:25 Freq: NEEDED Status: Active Protocol: Document 06/19/19 10:47 AB (Rec: 06/19/19 12:49 AB [id number]) Orientation Orientation/Cognition Level of Alertness Alert Orientation Name,Place,Situation Safety Awareness Decreased Safety Awareness Gross Range of Motion Lower Extremity ROM Assessment Within Functional Limits Strength Lower Extremity Strength Assessment Right Impaired Hip 3+/5 Knee 3+/5 Sensation Assessment Sensation Gross Sensation WNL Muscle Tone Muscle Tone WNL Yes M6 PT-IP Treatment Start: 06/19/19 12:25 Freq: NEEDED Status: Active Protocol: Document 06/19/19 10:47 AB (Rec: 06/19/19 12:49 AB [id number]) Physical Therapy Treatment Education Education Provided Safety M7 PT-IP Assessment and Plan Start: 06/19/19 12:25 Freq: NEEDED Status: Active Protocol: Document 06/19/19 10:47 AB (Rec: 06/19/19 12:49 AB [id number]) PT Summary Assessment and Plan Potential Rehabilitation Potential Excellent Status of Condition at Evaluation Evolving Summary Impairments Pain,ROM,Strength,Balance, Coordination,Sensation,Tone, Cognition,Bed Mobility, Transfers,Gait,Activity Tolerance Assessment Summary pt requiring CGA to min A with ambulation using FWW. presents with unsteady gait with R knee buckling and LOB. informed pt regarding acute rehab recommendation and pt stated that she will think about it. pt will have her spouse to assist her at home. Goals Bed Mobility Goal Independent Transfer Goal Independent,Front Wheeled Walker Gait Goal Independent,Front Wheel Walker Gait Distance 250 Other Goals ambulation using SPC 200 ft SBA up/down 1 step using FWW SBA up/down 13 steps with bilateral rails SBA Days to Meet Goals 10 Frequency of Treatment Frequency Of Treatment Twice a Day Treatment Plan Physical Therapy Treatment Plan Bed Mobility Training,Transfer Training,Gait Training, Therapeutic Exercise,Balance Retraining,Discharge Planning, Neuromuscular Re-ed, Coordination Retraining,Manual Therapy Other Recommendations and Next Treatment ambulation, stair climbing, Focus standing balance Recommendations To Nursing Amount of Assist Needed 1 Person Assist Discharge Recommendations PT Discharge Recommendations Acute Rehab Equipment Needed for Home Before FWW Discharge Transportation Needs at Discharge Private Vehicle,Wheelchair/ Cabulance
--- NOTE | 2019-06-19 11:38 | PC.NURSE ---
Pt transferred from MRI diagnostics to floor via wheelchair at 1130: Tele reapplied Neuro: Weakness to right hand, arm and leg; speech clear; objectively, word finding intact although patient reports subjective difficulty with word finding; facial and tongue muscles equal; Tele SR; pt denies nausea, SOB; RA= 95%; high fall risk due to weakness
[2019-06-19] MEDS: POTASSIUM CHLORIDE 20 MEQ TAB 40 MEQ PO (11:48)
--- NOTE | 2019-06-19 13:24 | CM.DPC ---
Addendum entered by Tran Bang R.N. 06/19/19 15:41: Sent latest O.T. note to [facility] inpatient, and P.T. note. Spoke to Ruth in admissions at [facility]. Gave her this counter caser's phone number. She is reviewing, and thanked this counter caser for referral. She mentioned that they have worked with before, and strong possibility that they can accept. Will continue to follow up. Original Note: DCP Cont: Met with patient in her room. Gave her information from [facility] inpatient rehab at [facility]. Patient became tearful, and started talking about her , who she stated is disabled. Stated he suffered a major heart attack years ago and hasn't been the same since. She stated she will not go to [facility], but can consider [facility] inpatient. She is also wanting to think about just doing outpatient P.T. Spoke to Nedra at [facility]. Stated that they do have a couple of beds available. She gave their fax number of: [phone]. Their phone number is [phone]. Faxed over face sheet, H&P, P.T. notes, MRI. She will review. Let her know that patient has . Updated Dr. Cerrato as well. Authorization could take at least 24 hours. P: DCP to continue to follow closely and follow up with authorization. Dr. Cerrato will be seeing patient today as well. Tran Bang RN/Hearing Therapy Director
--- NOTE | 2019-06-19 14:10 | OT.IP.EVAL ---
Past Medical History (Last Reviewed 06/19/19 @ 01:12 by NATALY Stanley) Former smoker (Acute) Hypertension (Acute) Occupational Therapy Inpatient Evaluation/Re-Eval M1 PT/OT-IP Prior Functional Status Start: 06/19/19 12:25 Freq: NEEDED Status: Active Protocol: Document 06/19/19 14:10 PJM (Rec: 06/19/19 14:51 PJM [email or web address]) Medical Review Prior Functional Status Medical History Reviewed Yes Diet/Fluid Consistency Regular Communication WNL Mobility and Gait Pt ambulated without a device. 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 Social History Household Members spouse Living Arrangements House Number of Floors (Floors) Two Floors Number of Stairs To Enter/Railing? 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 [employer] Employed Additional Social History Comment Pt uses no DME at home M2 OT-IP Current Condition Start: 06/19/19 13:15 Freq: Status: Active Protocol: Document 06/19/19 14:10 PJM (Rec: 06/19/19 14:51 PJM [email or web address]) Occupational Therapy Current Condition Current Condition Evaluation Date 06/19/19 Treatment Diagnosis L stroke with R side weakness, dysmetria Diagnosis Onset Date 06/18/19 Post Operative Precautions Other Precautions fall risk, R knee eliza M3 OT- IP Subjective and Pain Start: 06/19/19 13:15 Freq: Status: Active Protocol: Document 06/19/19 14:10 PJM (Rec: 06/19/19 14:51 PJM [email or web address]) OT- Subjective Occupational Therapy Visit Type Type Initial Evaluation Visit Start Time 13:25 Visit Stop Time 14:10 Total Visit Minutes 45 Occupational Therapy Visit Comments Patient Comments I can't believe this happened. Patient/Caregiver Goals to go home, go back to work, be able to drive and ride her horses OT Pain Assessment Pain When Pain Assessed After Treatment Pain Present Pain Present Denied Pain M4 OT- IP ADL's Start: 06/19/19 13:15 Freq: Status: Active Protocol: Document 06/19/19 14:10 PJM (Rec: 06/19/19 14:51 [facility] [email or web address]) OT [id number] General Evaluation Self-Feeding Ability Independent Areas Needing Assistance Cutting Food,Opening Containers Comments OT Self-Feeding Comments pt feeding self slowly and carefully with R hand with min spilling; needs assist with opening small containers due to R hand decreased strength and dexterity OT ADL-Grooming General Evaluation Grooming Ability Standby Assistance Areas Needing Assistance Retrieving/Set-up of Grooming Items,Face Washing OT ADL-Oral Care Comments Oral Care Comments did not occur this session OT ADL-Dressing General Eval Lower Body Dressing Ability Standby Assistance Areas Needing Assistance Socks Comments OT Dressing Comments performs slowly due to R hand weakness and incoordination with mildly decreased dynamic sitting balance on edge of bed OT ADL-Toileting Comments OT Toileting Comments did not occur this session OT ADL-Bathing Comments OT Bathing Comments to be assessed in AM M5 OT- IP IADL's Start: 06/19/19 13:15 Freq: Status: Active Protocol: Document 06/19/19 14:10 PJ (Rec: 06/19/19 14:51 [facility] [email or web address]) OT-Instrumental Activities of Daily Living Deficits IADL Deficits Identified Deficits Home Safety Awareness Awareness of Need for Assistance at Home Good Awareness Ability to Problem Solve Emergency Able to Problem Solve Situations Medication Management Medication Management No Deficits Identified Money Management Money Management Comments pt currently unable to write legibly and would need assist with check writing Meal Preparation Meal Preparation Comments currently needs assist due to decreased R hand function and decreased standing balance with FWW 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[employer] Comments currently needs assist due to decreased R hand function and decreased functional mobility with FWW Driving Driving Comments currently needs assist due to RLE weakness M6 OT- IP Functional Cognition Start: 06/19/19 13:15 Freq: Status: Active Protocol: Document 06/19/19 14:10 PJM (Rec: 06/19/19 14:51 [facility] [email or web address]) Cognitive Factors Limiting Selfcare Function Cognitive Ability Level of Alertness Alert Patient Orientation Name,Age,Birthday,Month,Date, Year,Day of Week,Place, Situation Attention Span Ability Capable of Focused Attention, Capable of Sustained Attention Ability to Follow Commands Able to Follow Multi-Step Commands Memory Description No Deficits Noted Safety Awareness Underestimates Need for Assistance Problem Solving Ability Needs Assist to Identify Solutions Cognitive Comments Cognitive Assessment Comments pt tends to be mildly impulsive and moves quickly OT- Vision and Hearing OT- Hearing Assessment OT- Hearing Assessment WFL OT- Vision Assessment Visual Acuity Contact Lenses Visual Attentiveness WFL Occular Pursuits WFL Visual [place] WFL Diplopia Absent Visual Spacial Neglect Not Applicable Vision Assessment Comments No new vision deficits identified; pt has contact lenses in place M7 OT- IP Mobility and Balance Start: 06/19/19 13:15 Freq: Status: Active Protocol: Document 06/19/19 14:10 PJM (Rec: 06/19/19 14:51 PJM [email or web address]) OT- Bed Mobility Assessment Supine to Sit Supine to Sit Assist Standby Assistance,Head of Bed Elevated Sit to Supine Sit to Supine Assist Standby Assistance,Head of Bed Elevated Scooting Scooting to Edge of Bed Standby Assistance Scooting Up and Down in Bed Standby Assistance OT-Transfer Assessment Transfers Transfer Ability Contact Guard Assistance Technique Transfer Destination Chair Transfer Technique Stand Step Pivot Devices Transfer Assistive Devices Gait Belt,Front Wheeled Walker Comments Mobility Comments Pt needs mod verbal cues to move slowly. R knee buckled on pt's first attempt at standing. Needs verbal cues to widen base of support and activate R quadriceps. OT- Gait Assessment Comments Gait Ability Comments see P.T. notes OT- Balance Assessment Sitting Balance and Reactions Static Sitting Balance Ability Good Dynamic Sitting Balance Ability Fair Standing Balance and Reactions Static Standing Balance Ability Good Dynamic Standing Balance Ability Fair Comments Other Balance Tests/Deviations/Treatment during transfer and lower body : dressing, see P.T. 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 OT- Coordination Assessment Upper Extremity Finger to Nose Test Right UE Impaired Finger Tapping Test Right UE Impaired Comments Coordination Comments Pt has fine motor greater than gross motor dysmetria with mild past pointing noted on finger to nose test. 9-Hole Peg Hand Test Hand Left Scoring Time 21 Interpretation Within Normal Range Norm For Patients Age/Sex 17-25 sec Right Scoring Time 37 Interpretation Impaired Norm For Patients Age/Sex 15-22 sec OT-Muscle Tone Assessment Muscle Tone WNL No Comments Muscle Tone Comments Pt is mildly hypotonic in RUE. OT Sensation Assessment Location Right Arm Light Touch Intact/Normal Deep Pressure Intact/Normal Proprioception (Position) Intact/Normal Tactile Localization Intact/Normal Sensation Description Normal for Patient Edema Edema Absent M9 OT- IP Assessment and Plan Start: 06/19/19 13:15 Freq: Status: Active Protocol: Document 06/19/19 14:10 PJM (Rec: 06/19/19 14:51 PJM [email or web address]) OT Summary Assessment and Plan Potential Rehabilitation Potential Excellent Analytic Complexity at Evaluation Low Summary OT Impairments Range of Motion,Strength, Balance,Coordination, Functional Mobility,Self- Feeding,Grooming,Dressing, Toileting,Bathing,Toilet Transfers,Shower Transfers, Activity Tolerance Assessment Summary Low complexity OT assessment completed on this 64 yr old woman admitted with L lacunar infarct with mild R side weakness and moderate R ( dominant) gross and fine coordination deficits/ dysmetria. Pt has performance deficits in all functional mobility/transfers with buckling of R knee noted when first standing to transfer to chair. Pt also has performance deficits in all self care/ IADLS due to decreased functional use of RUE/hand. 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 Provided pt education re: evaluation results, stroke recovery process and d/c planning options. Pt has excellent prognosis from OT stand point and would be excellent candidate for acute in pt rehab to maximize RUE/hand function, regain independence in all self care, IADLS. Goals Self-Feeding Goal Independent Grooming Goal Independent Dressing Goal Independent Toileting Goal Independent Bathing Goal Independent Toilet Transfer Goal Independent Shower Transfer Goal Independent OT-Other Goals Pt to demonstrate good safety awareness during all self care tasks. Days to Meet Goals 7 Frequency of Treatment Frequency Of Treatment Once a Day Treatment Plan OT Treatment Plan ADL Training,Functional Mobility,Neuromuscular Re- education,Therapeutic Exercises,Patient/Family Education,Discharge Planning Discharge Recommendations OT Discharge Recommendations Acute Rehab Home Equipment Needs to be determined in next rehab setting pending progress Transportation Needs at Discharge Wheelchair/Cabulance
--- NOTE | 2019-06-19 16:15 | PT.IPTN ---
Physical Therapy Treatment Note M2 PT-IP Current Condition Start: 06/19/19 12:25 Freq: NEEDED Status: Active Protocol: Document 06/19/19 10:47 AB (Rec: 06/19/19 12:49 AB [id number]) Physical Therapy Current Condition Current Condition Evaluation Date 06/19/19 Treatment Diagnosis CVA R sided weakness; difficulty in walking Onset Date 06/18/2019 Precautions Other Precautions falls M3 PT-IP Subjective Start: 06/19/19 12:25 Freq: NEEDED Status: Active Protocol: Document 06/19/19 16:15 AB (Rec: 06/19/19 17:37 AB [id number]) Subjective Physical Therapy Visit Type Type Treatment Note Visit Start Time 16:15 Visit Stop Time 16:57 Total Visit Minutes 42 Number of CREEL CLERK Visits 0 Physical Therapy Visit Comments Patient Comments pt agreeable to do PT Therapy Pain Assessment Pain Present Pain Present Denied Pain M4 PT-IP Mobility and Gait Start: 06/19/19 12:25 Freq: NEEDED Status: Active Protocol: Document 06/19/19 16:15 AB (Rec: 06/19/19 17:37 AB [id number]) PT-Bed Mobility Assessment Supine to Sit Supine to Sit Standby Assistance PT-Transfer Assessment Sit to and From Stand Sit to and from Stand Minimal Assistance,1 Person Assistance,Use of Upper Extremities Equipment Transfer Assistive Device Gait Belt,Front Wheeled Walker Orthotic/Prosthetic Devices or Brace: No Transfers Transfer Destination Chair Transfer Technique ambulated using FWW Transfer Ability Level of Assist Minimal Assistance,1 Person Assistance,Use of Upper Extremities Comments Mobility Comments pt completed supine to sit SBA . ambulated in room using FWW ~ 30 ft min A and cues for balance and safety. pt sat on the chair. completed sit <> stand x 8 reps. initially with UE use and then without UE use for the last 5 reps. instructed on techniques and maintan stability. completed standing balance activities: increase COG awareness, weight shifting forward/backwards, side/side, horizontal and reaching, completed marching in place with emphasis on increase RLE elevation. pt sat back on the chair. set up for dinner. call light and table placed within reach. left pt with spouse in room. Gait Assessment Gait Gait Assistance Required: Minimum Assistance Distance (Feet) 30 Able to Maintain Weight Bearing Status Yes During Gait Assistive Devices Assistive Device Gait Belt,Front Wheeled Walker Orthotic/Prosthetic Devices or Brace: No Gait Deviations General Gait Pattern Antalgic,Decreased Stride Length,Decreased Feet Clearance Factors Limiting Gait Function Factors Limiting Gait Function Decreased Activity Tolerance, Decreased Strength,Difficulty Following Directions, Incoordination,Limited Range of Motion,Poor Balance,Poor Safety Awareness Comments Gait Comments pls refer to mobility section for details M5 PT-IP Objective Assessments Start: 06/19/19 12:25 Freq: NEEDED Status: Active Protocol: Document 06/19/19 10:47 AB (Rec: 06/19/19 12:49 AB [id number]) Orientation Orientation/Cognition Level of Alertness Alert Orientation Name,Place,Situation Safety Awareness Decreased Safety Awareness Gross Range of Motion Lower Extremity ROM Assessment Within Functional Limits Strength Lower Extremity Strength Assessment Right Impaired Hip 3+/5 Knee 3+/5 Sensation Assessment Sensation Gross Sensation WNL Muscle Tone Muscle Tone WNL Yes M6 PT-IP Treatment Start: 06/19/19 12:25 Freq: NEEDED Status: Active Protocol: Document 06/19/19 16:15 AB (Rec: 06/19/19 17:37 AB [id number]) Physical Therapy Treatment Education Education Provided Safety M7 PT-IP Assessment and Plan Start: 06/19/19 12:25 Freq: NEEDED Status: Active Protocol: Document 06/19/19 16:15 AB (Rec: 06/19/19 17:37 AB [id number]) PT Summary Assessment and Plan Potential Rehabilitation Potential Excellent Summary Impairments Pain,ROM,Strength,Balance, Coordination,Sensation,Tone, Cognition,Bed Mobility, Transfers,Gait,Activity Tolerance Progress Towards Goals Progressing Toward Goals Assessment Summary pt requiring min A with ambulation using FWW but is steadier this afternoon than this morning. continues to require 24/7 assist and can be impulsive but is motivated with PT participation. conducted standing balance/ tolerance activities and pt is more aware of body positioning and muscle activation but continues to require min A and cues for safety. pt will benefit from acute rehab to improve strength, standing balance and ambulation. Goals Bed Mobility Goal Independent Transfer Goal Independent,Front Wheeled Walker Gait Goal Independent,Front Wheel Walker Gait Distance 250 Other Goals ambulation using SPC 200 ft SBA up/down 1 step using FWW SBA up/down 13 steps with bilateral rails SBA Days to Meet Goals 10 Frequency of Treatment Frequency Of Treatment Twice a Day Treatment Plan Physical Therapy Treatment Plan Bed Mobility Training,Transfer Training,Gait Training, Therapeutic Exercise,Balance Retraining,Discharge Planning, Neuromuscular Re-ed, Coordination Retraining,Manual Therapy Other Recommendations and Next Treatment ambulation, stair climbing, Focus standing balance Recommendations To Nursing Amount of Assist Needed 1 Person Assist Discharge Recommendations PT Discharge Recommendations Acute Rehab Equipment Needed for Home Before FWW Discharge Transportation Needs at Discharge Private Vehicle,Wheelchair/ Cabulance
--- NOTE | 2019-06-19 16:15 | PM.PN.1 ---
Subjective Subjective Date Patient Seen: 06/19/19 Interval history: Emma Goss is a 64-year-old female with a past medical history significant for hypertension, palpitations, depression and anxiety who presented to the ED with complaint of slurred speech, right-sided weakness, and right footdrop. The patient is resting in bed comfortably. She is just finished working with speech therapy for which she reports she notices that her speech feels delayed/slowed. Informed the patient that she has had a left basal ganglia CVA. Discussed inpatient rehabilitation which the patient is agreeable to. He or she denies headache, ear pain, rhinitis, sore throat, cough, shortness of breath, chest pain, abdominal pain, nausea, vomiting, fever, chills, dysuria, diarrhea or constipation. He or she is voiding and eliminating without difficulty. He or she is up ambulating without or with assistance. Exam Vital Signs (past 8 hours): - 06/19/19 09:52 06/19/19 12:00 06/19/19 15:48 Temperature 98.0 F Pulse Rate 65 69 Respiratory Rate 14 18 Blood Pressure 131/76 133/87 136/81 Pulse Oximetry 96 98 Oxygen Delivery Method Room Air Oxygen Flow Rate 0 Narrative Exam Narrative: General: Middle-aged thin female sitting in bed and in no acute distress, well-developed, well-nourished, appropriately interactive. HEENT: Normocephalic, atraumatic. External ears without defect. Pupils equal, round, and reactive to light. Anicteric sclerae, moist conjunctivae, and no lid lag. Oropharynx free of erythema and cobble stoning with moist mucosa. No facial droop. Slight subtle slurring of speech. Neck: Supple with full range of motion. No jugular venous distension. No bruits. No lymphadenopathy or thyromegaly. Cardiovascular: Regular rate and rhythm without murmurs, rubs, or gallops appreciated Pulmonary: Clear to auscultation bilaterally without crackles, wheezes, or rhonchi. Normal respiratory effort with no use of accessory muscles. Abdomen: Soft, bowel sounds present, nontender, nondistended. No hepatosplenomegaly or masses appreciated. Extremities: No clubbing, cyanosis, or edema. Skin: Normal temperature, turgor, and texture; no rash, ulcers, or subcutaneous nodules appreciated. Neurological: Subtle slight slurring and slowing of speech with mild expressive aphasia. Right-sided lower extremity weakness +3/5. Right upper extremity and left upper and lower extremities with full strength +5/5. Discoordination and imbalance with ambulation. Psychiatric: Depressed mood and normal affect. Alert and oriented to person, place, and time. Objective Labs Result Diagrams: 06/19/19 05:30 06/19/19 05:30 Labs: Laboratory Results - last 24 hr 06/18/19 06/18/19 06/18/19 17:41 17:41 17:41 WBC 7.7 RBC 4.30 Hgb 14.1 Hct 41.5 MCV 96.6 MCH 32.9 MCHC 34.0 RDW 12.3 Plt Count 329 Neut % (Auto) 60.4 Lymph % (Auto) 29.2 [place] % (Auto) 7.2 Eos % (Auto) 2.3 Baso % (Auto) 0.9 Neut # (Auto) 4700 Lymph # (Auto) 2300 [place] # (Auto) 600 Eos # (Auto) 200 Baso # (Auto) 100 PT 10.9 INR 1.0 APTT 31 Sodium 140 Potassium 3.7 Chloride 105 Carbon Dioxide 24 BUN 14 Creatinine 0.70 Estimated GFR > 60.0 BUN/Creatinine Ratio 20.0 Glucose 91 Hemoglobin A1c Calcium 9.3 Total Bilirubin 0.2 AST 28 ALT 17 Alkaline Phosphatase 78 Total Protein 7.2 Albumin 4.2 Globulin 3.0 Albumin/Globulin Ratio 1.4 Triglycerides Cholesterol LDL Cholesterol, Calc HDL Cholesterol Lipase 75 Ethyl Alcohol < 10 06/19/19 06/19/19 06/19/19 05:30 05:30 05:30 WBC 5.4 RBC 4.13 Hgb 13.6 Hct 39.5 MCV 95.8 MCH 32.9 MCHC 34.4 RDW 12.5 Plt Count 290 Neut % (Auto) 42.7 L Lymph % (Auto) 44.5 H [place] % (Auto) 8.8 Eos % (Auto) 3.3 Baso % (Auto) 0.7 Neut # (Auto) 2300 Lymph # (Auto) 2400 [place] # (Auto) 500 Eos # (Auto) 200 Baso # (Auto) 0 PT INR APTT Sodium 140 Potassium 3.3 L Chloride 106 Carbon Dioxide 26 BUN 12 Creatinine 0.70 Estimated GFR > 60.0 BUN/Creatinine Ratio 17.1 Glucose 87 Hemoglobin A1c Calcium 9.0 Total Bilirubin 0.4 AST 25 ALT 16 Alkaline Phosphatase 65 Total Protein 6.5 Albumin 3.8 Globulin 2.7 Albumin/Globulin Ratio 1.4 Triglycerides 64 Cholesterol 199 LDL Cholesterol, Calc 122 H HDL Cholesterol 64 H Lipase Ethyl Alcohol 06/19/19 05:30 WBC RBC Hgb Hct MCV MCH MCHC RDW Plt Count Neut % (Auto) Lymph % (Auto) [place] % (Auto) Eos % (Auto) Baso % (Auto) Neut # (Auto) Lymph # (Auto) [place] # (Auto) Eos # (Auto) Baso # (Auto) PT INR APTT Sodium Potassium Chloride Carbon Dioxide BUN Creatinine Estimated GFR BUN/Creatinine Ratio Glucose Hemoglobin A1c 5.1 Calcium Total Bilirubin AST ALT Alkaline Phosphatase Total Protein Albumin Globulin Albumin/Globulin Ratio Triglycerides Cholesterol LDL Cholesterol, Calc HDL Cholesterol Lipase Ethyl Alcohol Assessment & Plan Assessment & Plan narrative: Emma Goss is a 64-year-old female with a past medical history significant for hypertension, palpitations, depression and anxiety who presented to the ED with complaint of slurred speech, right-sided weakness, and right footdrop. 1. Acute left basal ganglia lacunar CVA, present on admission. Active. -Patient presented after 3 hours of slurred speech, right-sided weakness and footdrop. -Cardiac risk factors include: Hypertension, hyperlipidemia, former smoker with 40 pack year history, and probable untreated rheumatoid arthritis. -NIH score 0. Patient has subtle dysarthria/slurred speech and continues to have right-sided lower extremity weakness. -CT brain without contrast did not demonstrate any acute intracranial abnormality. -CTA head and neck did not demonstrate any hemodynamically significant stenosis in head or neck. Incidentally noted 1.3 cm cavitary lesion seen involving the right lung apex. -MR stroke protocol demonstrated small acute lacunar infarct involving the left basal ganglia and left periventricular deep white matter with minimal associated cytotoxic edema. -Ordered echocardiogram to assess for embolic source, pending. -Continue frequent neuro checks. -Continue to monitor closely on telemetry. -Allow for permissive hypertension for 24 hours. -Continue aspirin 81 mg daily (patient was taking aspirin 325 mg daily) and added Plavix 75 mg daily for 1 week as literature review demonstrates improved outcomes and rosuvastatin 20 mg daily at bedtime for stroke prophylaxis. -Continue physical, occupational and speech therapy evaluation treatment. Currently recommending inpatient rehabilitation with insurance approval pending. 2. Hyperlipidemia, chronic, present on admission. Stable. -Patient is currently not on medical therapy for hyperlipidemia. -Fasting lipid panel demonstrated poor lipid control with: Total cholesterol 199, triglycerides 64, LDL 122 (goal<70), and HDL 64. 3. Hypertension, chronic, present on admission. Stable. -Continue metoprolol succinate 50 mg daily. 4. Depression and anxiety, chronic and stable -Continue home bupropion SR 150 mg daily. Code status: DNR/DNI VTE prophylaxis: Heparin Disposition: Patient likely to discharge to inpatient rehabilitation pending insurance approval. Quality VTE Deep Vein Thrombosis/Pulmonary Embolism Present on Admission: No
[2019-06-19] MEDS: LOVASTATIN 20 MG TABLET 40 MG PO (16:48)
--- NOTE | 2019-06-19 17:55 | ST.IPIE ---
Visit Care Team Role Provider Type Katelynn Yeh DO Primary Care Provider Non-Staff Specialty: Medical Address: [address] [place] [address], [place], [address] Email: Francisco Shrestha DO Emergency Provider Physician Specialty: Emergency Medicine Address: [address] [place] [address], [id number] Email: [email or web address] NATALY Stanley Admit Provider Physician Attending Provider Specialty: Internal Medicine Address: [address] [place] [address], [id number] Email: [email or web address] Past Medical History (Last Reviewed 06/19/19 @ 01:12 by NATALY Stanley) Former smoker (Acute Social Hx) Hypertension (Acute Medical) ST IP Initial 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 Patient History 64-year-old female presented to the ED with a history of hypertension and anxiety presented today with a 3 hour history of right-sided weakness, footdrop and a concerned she was having a stroke. She also noticed that her speech was worsening and that she felt like her right hand ?belonged to someone else , denied tingling or numbing but felt that her right upper extremity ?was not a part of me. She reports that when speaking, she feels like she is speaking in slow motion Referral Referring Physician Dr. Cerrato Reason for Referral CVA Mental Status Mental Status Alert,Responsive,Cooperative Subjective Observations Subjective pt was in her bed with clinical nursing assistant in her room Oral Motor Lips Function WNL Pucker OK Retraction OK Alternating pucker/retraction OK Tongue Function WNL Protrusion OK Retraction OK Lateralization OK Jaw Function WNL Opening OK Closing OK Soft Palate Function WNL Sustained Elevation OK Respiration/Phonation Phonation Quality WNL Loudness WNL Conversation Quality WNL Diadochokinetic Rates Speech Intelligibility Standardized Tests Assessment Name(s) Observation during conversation indicated a very subtle dysarthria Sentence Severity WFL Conversation Severity WFL Awareness/Strategy Use Description Type of awareness/use Uses consistently Findings Details Motor Speech Function WFL Assessment Prognosis Rehabilitation Potential Excellent Recommendations Treatment Recommended Yes Frequency daily Duration while inpatient Short Term Goals OM exercises to increase speed of speech production Care Home Goals Return to baseline Patient/Family Education Education Patient Understanding
[2019-06-19] MEDS: CLOPIDOGREL 75 MG TABLET PO (18:21)
[2019-06-19] MEDS: ASPIRIN EC 81 MG TABLET PO (18:21)
[2019-06-19] MEDS: SODIUM CHLORIDE 0.9% FLUSH 10 ML IV (21:00)
[2019-06-19] MEDS: ROSUVASTATIN 10 MG TABLET 20 MG PO (21:59)
[2019-06-20 05:18] VITALS: BP 129/74; PULSE 59; RESP 18; TEMP 36.8; O2SAT 96
[2019-06-20 05:58] LABS: Add Manual Diff / Slide Review NO; Basophils Absolute Auto 0 /uL (0-100); Basophils Percent Auto 0.9 % (0-2); Eosinophils Absolute Auto 100 /uL (0-450); Eosinophils Percent Auto 3.2 % (2-4); Hemoglobin 13.8 g/dL (12.0-16.0); Lymphocytes Absolute Auto 1900 /uL (1100-4500); Mean Corpuscular HGB Conc 34.5 % (30-36); Mean Corpuscular Hemoglobin 33.2 PG (26-34); Mean Corpuscular Volume 96.1 fL (80-100); Monocytes Absolute Auto 400 /uL (0-900); Neutrophils Absolute Auto 1900 /uL (1500-7000); Neutrophils Percent Auto 42.9 % (50-75); Platelet Count 289 X10^3/uL (150-400); Red Blood Cell Count 4.17 X10^6/uL (4.0-5.2); Red Cell Distribution Width 12.1 % (11.6-14.8); White Blood Cell Count 4.4 X10^3/uL (4.5-11.0)
[2019-06-20 06:00] LABS: BUN Creatinine Ratio 14.3 (6-22); Blood Urea Nitrogen 10 mg/dL (7-17); Calcium 9.1 mg/dL (8.4-10.2); Carbon Dioxide 28 mmol/L (22-32); Chloride 103 mmol/L (98-107); Estimated Glomerular Filt Rate > 60.0 mL/min (>60); Glucose 93 mg/dL (80-110); HEMOLYSIS < 15 (0-50); Potassium 3.7 mmol/L (3.4-5.1); Sodium 137 mmol/L (137-145)
--- NOTE | 2019-06-20 07:40 | CM.DPC ---
DCP Cont: Called [facility] inpatient rehab at [facility] and spoke to Ruth in admissions. She stated that they are still working on getting insurance authorization through [facility]. She stated that she would call back later this morning, and mentioned that patient does look appropriate for admission. P: DCP will continue to follow closely and will follow up with [facility] today. Tran Bang RN/[employer]
[2019-06-20 08:00] VITALS: BP 127/75; PULSE 74; RESP 16; TEMP 36.5; O2SAT 98
--- NOTE | 2019-06-20 10:51 | OT.IP.TRT ---
Current Diagnoses Cerebral infarction, unspecified (06/18/19) Occupational Therapy Treatment Note M3 OT- IP Subjective and Pain Start: 06/19/19 13:15 Freq: Status: Active Protocol: Document 06/20/19 10:51 PJM (Rec: 06/20/19 18:01 [facility] [id number]) OT- Subjective Occupational Therapy Visit Type Type Treatment Note Visit Start Time 09:34 Visit Stop Time 10:51 Total Visit Minutes 77 Notes Pt's here for education this session. Occupational Therapy Visit Comments Patient Comments I feel so much better today and I am stronger in my arm and leg. Patient/Caregiver Goals to go home today and go to out pt therapy OT Pain Assessment Pain When Pain Assessed After Treatment Pain Present Pain Present Denied Pain M4 OT- IP ADL's Start: 06/19/19 13:15 Freq: Status: Active Protocol: Document 06/20/19 10:51 PJM (Rec: 06/20/19 18:01 [facility] [id number]) OT ADL-Grooming General Evaluation Grooming Ability Independent Areas Needing Assistance Face Washing Comments OT Grooming Comments standing at sink with cane using R hand slowly OT ADL-Oral Care Comments Oral Care Comments standing at sink but with decreased R hand fast reciprocal movements with toothbrush, pt has electric toothbrush at home OT ADL-Dressing General Eval Upper Body Dressing Ability Independent Lower Body Dressing Ability Independent Areas Needing Assistance Pull-Over Shirt,Pants/Shorts, Socks,Shoes OT ADL-Toileting General Evaluation Toileting Ability Independent OT ADL-Bathing Bathing Type Bathing Type Shower General Evaluation Bathing Ability Standby Assistance Areas Needing Assistance Retrieving/Setting Up Items Devices Bathing Equipment Shower Chair with Arms Comments OT Bathing Comments Pt will borrow shower seat for home use, to install grab bars. Pt stood for 90% of shower with light use of grab bars with no LOB noted M5 OT- IP IADL's Start: 06/19/19 13:15 Freq: Status: Active Protocol: Document 06/20/19 10:51 PJM (Rec: 06/20/19 18:01 [facility] [id number]) OT-Instrumental Activities of Daily Living Deficits IADL Deficits Identified Deficits Home Safety Awareness Awareness of Need for Assistance at Home Good Awareness Ability to Problem Solve Emergency Able to Problem Solve Situations Medication Management Medication Management No Deficits Identified Money Management Money Management No Deficits Identified Meal Preparation Meal Preparation Caregiver Provides Assist Meal Preparation Comments does most of cooking and can provide SBA to pt PRN Director Of Exhibit Development Director Of Exhibit Development Caregiver Provides Assist Director Of Exhibit Development Comments to assist until pt able Driving Driving Comments Recommend pt not drive at present due to decreased RUE/ RLE coordination M6 OT- IP Functional Cognition Start: 06/19/19 13:15 Freq: Status: Active Protocol: Document 06/20/19 10:51 PJ (Rec: 06/20/19 18:01 [facility] [id number]) Cognitive Factors Limiting Selfcare Function Cognitive Ability Level of Alertness Alert Patient Orientation Name,Age,Birthday,Month,Date, Year,Day of Week,Place, Situation Attention Span Ability Capable of Focused Attention, Capable of Sustained Attention Ability to Follow Commands Able to Follow Multi-Step Commands Memory Description No Deficits Noted Safety Awareness No Deficits Noted Problem Solving Ability No deficits Noted Cognitive Comments Cognitive Assessment Comments Pt showing good safety awareness with slower and better planned movements during mobility today. OT- Vision and Hearing OT- Vision Assessment Vision Assessment Comments No vision deficits identified M7 OT- IP Mobility and Balance Start: 06/19/19 13:15 Freq: Status: Active Protocol: Document 06/20/19 10:51 PJM (Rec: 06/20/19 18:01 [facility] [id number]) OT- Bed Mobility Assessment Rolling Type of Rolling Roll to Left Level of Assistance Independent Supine to Sit Supine to Sit Assist Independent Sit to Supine Sit to Supine Assist Independent Scooting Scooting to Edge of Bed Independent Scooting Up and Down in Bed Independent OT-Transfer Assessment Sit to and From Stand Sit to and from Stand Standby Assistance,1 Person Assistance Transfers Transfer Ability Standby Assistance,1 Person Assistance Technique Transfer Destination Bed,Chair,Shower Stall Transfer Technique Stand Step Pivot Devices Transfer Assistive Devices Straight Cane OT- Gait Assessment Gait Gait Assistance Required: Standby Assistance Distance (Feet) 250 Assistive Devices Assistive Device Straight Cane Comments Gait Ability Comments pt walking in cowboy boots with one minor LOB noted on turn which pt self corrected OT- Balance Assessment Sitting Balance and Reactions Static Sitting Balance Ability Good Dynamic Sitting Balance Ability Good Standing Balance and Reactions Static Standing Balance Ability Good Dynamic Standing Balance Ability Good Comments Other Balance Tests/Deviations/Treatment during dressing and shower : M8 OT- IP Objective Assessments Start: 06/19/19 13:15 Freq: Status: Active Protocol: Document 06/20/19 10:51 PJ (Rec: 06/20/19 18:01 [facility] [id number]) OT Gross Range of Motion Upper Extremity Range of Motion ROM Impairments BUE AROM symmetrical today OT Strength Comments Strength Comments Provided home exercise program of R hand strengthening for gross grasp, palmar pinch, finger extension with red theraputty. Pt demo's exercises correctly. OT- Coordination Assessment Comments Coordination Comments R hand dexterity during self care tasks improving daily. Provided list of suggested activities to improve R hand coordination. Less dysmetria noted during finger to nose test today and speed of finger tapping improved but still slower than L hand. OT-Muscle Tone Assessment Muscle Tone WNL Yes OT Sensation Assessment Location Right Arm Light Touch Intact/Normal M9 OT- IP Assessment and Plan Start: 06/19/19 13:15 Freq: Status: Active Protocol: Document 06/20/19 10:51 PJ (Rec: 06/20/19 18:01 [facility] [id number]) OT Summary Assessment and Plan Potential Rehabilitation Potential Excellent Summary Progress Towards Goals Goals Met Assessment Summary Pt much improved today and choosing to d/c home with followup out pt PT/OT. Discussed with MD and P.T. All OT goals achieved for this admission. Frequency of Treatment Frequency Of Treatment Discharge Discharge Recommendations OT Discharge Recommendations Home with Assistance Other Discharge Recommendations Out pt OT for R hand strength and dexterity Transportation Needs at Discharge Private Vehicle
[2019-06-20] MEDS: ASPIRIN EC 81 MG TABLET PO (11:00)
[2019-06-20] MEDS: buPROPion SR 150 MG TAB PO (11:01)
[2019-06-20] MEDS: CLOPIDOGREL 75 MG TABLET PO (11:01)
[2019-06-20] MEDS: HEPARIN 5,000 UNIT/ML VIAL 5000 UNIT SUBCUT (11:06)
[2019-06-20 11:18] VITALS: BP 138/102; PULSE 60
[2019-06-20] MEDS: METOPROLOL ER 50 MG TABLET PO (11:18)
--- NOTE | 2019-06-20 11:25 | P.DS_ITS ---
History of Present Illness History of Present Illness Date Patient Seen: 06/18/19 Chief complaint: thinks she is having a stroke Narrative: Written by Arlene INGRAM: Emma Machado is a pleasant 64-year-old female with a history of hypertension and anxiety presented today with a 3 hour history of right-sided weakness, footdrop and a concerned she was having a stroke. Per the patient at 2:00 p.m. she felt ?dizzy in weird? and also tired so she laid down for 45 mi nutes. She woke up to take care of farm animals on her property and felt like she had no control over right leg. Her drove her over the field and she managed to take care of her animals ambulating by dragging her right leg. She also noticed that her speech was worsening and that she felt like her right hand ?belonged to someone else, denied tingling or numbing but felt that her right u pper extremity ?was not a part of me. 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 She has had a history of palpitations and heart floaters and believe she may have undergone a event monitoring study. She states that worsens with activity. She has an appointment August [address] Larios due to the increasing frequency of these symptoms. In the emergency department she was noted to have a NIH scale of 0, however the paramedics when they evaluated her, they noted she had an ataxic gait with foot drop and a positive Romberg. Discharge Providers Provider Date of admission: 06/18/19 20:20 Discharge Date: 06/20/19 Primary care physician: Katelynn Yeh DO Consults: 06/18/19 22:01 Consult to Occupational Therapy Evaluate & Treat Comment: TIA, right sided weakness Physician Instructions: Evaluate and treat 06/18/19 22:02 Consult to Physical Therapy Evaluate & Treat Comment: TIA, right sided weakness Physician Instructions: Evaluate and Treat Consult to Speech Therapy Evaluate & Treat Comment: TIA, aphasia, right sided weakness Physician Instructions: Evaluate and treat Discharge provider: Christal Cerrato DO Summary Hospital Course Hospital Course: Emma Goss is a 64-year-old female with a past medical history significant for hypertension, palpitations, depression and anxiety who presented to the ED with complaint of slurred speech, right-sided weakness, and right footdrop. 1. Acute left basal ganglia lacunar CVA, present on admission. Active. -Patient presented after 3 hours of slurred speech, right-sided weakness and footdrop. -Cardiac risk factors include: Hypertension, hyperlipidemia, former smoker with 40 pack year history, and probable untreated rheumatoid arthritis. Recommended evaluation for RA and treatment if present -NIH score 0. Patient's deficits including dysarthria/slurred speech and right- sided lower extremity weakness/footdrop markedly improved. -CT brain without contrast did not demonstrate any acute intracranial abnormality. -CTA head and neck did not demonstrate any hemodynamically significant stenosis in head or neck. Incidentally noted 1.3 cm cavitary lesion seen involving the right lung apex. -MR stroke protocol demonstrated small acute lacunar infarct involving the left basal ganglia and left periventricular deep white matter with minimal associated cytotoxic edema. -Echocardiogram did not demonstrate embolic source with aneurysmal atrial septum and small intra-atrial shunt likely due to PFO. -Continued frequent neuro checks. -Continued to monitor closely on telemetry. Patient remained in sinus rhythm and sinus bradycardia throughout hospitalization and lowered metoprolol dose as below. Recommend outpatient heart monitor for 1 month for history of palpitations and keep scheduled appointment with cardiology evaluation and treatment in August. -Allowed for permissive hypertension for 24 hours. -Continued aspirin 81 mg daily (patient was taking aspirin 325 mg daily) and added Plavix 75 mg daily for 3 weeks as literature review demonstrates improved outcomes and rosuvastatin 20 mg daily at bedtime for stroke prophylaxis. -Continued physical, occupational and speech therapy evaluation treatment. Re commended outpatient rehabilitation with all therapies including PT/OT/ST. OT recommended no driving and grab bars and shower chair for bathing. 2. Hyperlipidemia, chronic, present on admission. Stable. -Patient is currently not on medical therapy for hyperlipidemia. -Fasting lipid panel demonstrated poor lipid control with: Total cholesterol 199, triglycerides 64, LDL 122 (goal<70), and HDL 64. -Started and continued rosuvastatin 20 mg daily at bedtime. 3. Hypertension, chronic, present on admission. Stable. -Continued metoprolol succinate decreased from 50 mg to 25 mg daily due to fabian ycardia with heart rate in high 40s low 50s. -Recommended patient keep blood pressure log with 4 readings per day using correct blood pressure technique and bringing blood pressure log to PCP appointm ent. 4. Depression and anxiety, chronic and stable -Continued home bupropion SR 150 mg daily. Exam Vital Signs (past 8 hours): - 06/20/19 05:18 06/20/19 08:00 06/20/19 11:18 Temperature 98.3 F 97.7 F Pulse Rate 59 L 74 60 Respiratory Rate 18 16 Blood Pressure 129/74 127/75 138/102 H Pulse Oximetry 96 98 Oxygen Delivery Method Room Air Oxygen Flow Rate 0 Narrative Exam Narrative: General: Middle-aged thin female sitting in bed and in no acute distress, well- developed, well-nourished, appropriately interactive. HEENT: Normocephalic, atraumatic. External ears without defect. Pupils equal, round, and reactive to light. Anicteric sclerae, moist conjunctivae, and no lid lag. Oropharynx free of erythema and cobble stoning with moist mucosa. No facial droop. Slight subtle slurring of speech, improved. Neck: Supple with full range of motion. No jugular venous distension. No bruits. No lymphadenopathy or thyromegaly. Cardiovascular: Regular rate and rhythm without murmurs, rubs, or gallops appreciated. Pulmonary: Clear to auscultation bilaterally without crackles, wheezes, or rhonchi. Normal respiratory effort with no use of accessory muscles. Abdomen: Soft, bowel sounds present, nontender, nondistended. No hepatosplenomegaly or masses appreciated. Extremities: No clubbing, cyanosis, or edema. Skin: Normal temperature, turgor, and texture; no rash, ulcers, or subcutaneous nodules appreciated. Neurological: Subtle slight slurring and slowing of speech with mild expressive aphasia, improved. Right-sided lower extremity weakness significantly improved with +4/5 muscle strength. Right upper extremity and left upper and lower extremities with full strength +5/5. Discoordination and imbalance with ambulation. Psychiatric: Depressed mood and normal affect. Alert and oriented to person, place, and time. Objective Labs Result Diagrams: 06/20/19 05:15 06/20/19 05:15 Labs: Laboratory Results - last 24 hr 06/20/19 06/20/19 05:15 05:15 WBC 4.4 L RBC 4.17 Hgb 13.8 Hct 40.0 MCV 96.1 MCH 33.2 MCHC 34.5 RDW 12.1 Plt Count 289 Neut % (Auto) 42.9 L Lymph % (Auto) 43.0 H Falls % (Auto) 10.0 Eos % (Auto) 3.2 Baso % (Auto) 0.9 Neut # (Auto) 1900 Lymph # (Auto) 1900 Falls # (Auto) 400 Eos # (Auto) 100 Baso # (Auto) 0 Sodium 137 Potassium 3.7 Chloride 103 Carbon Dioxide 28 BUN 10 Creatinine 0.70 Estimated GFR > 60.0 BUN/Creatinine Ratio 14.3 Glucose 93 Calcium 9.1 Discharge Plan Discharge Plan Patient Disposition: Home Discharge comment: You are being discharged home. You have had a left basal ganglia stroke. You may have good and bad days in regard to your deficits with right-sided weakness and slurred/slowed speech and word finding difficulty. You may also notice at the end of the day or when you are significantly fatigued more exaggerated deficits. Please follow-up with your primary care physician, Dr. Yeh, regarding your hospitalization for stroke and medication additions and changes. Please keep a blood pressure log (2 readings in the morning and 2 readings in the evening) and bring this to your PCP appointment. Please use correct blood pressure technique with feet planted flat on the floor, back supported, in a chair with the blood pressure cuff at the level of the heart and your arm resting on hard surface. Do not measure your blood pressure until you have been stationary for at least 5 minutes. Your metoprolol succinate dose has been decreased to 25 mg daily due to bradycardia with heart rate in the high 40s and low 50s. You may require an additional blood pressure medication to better control hypertension and may discuss this with your PCP. You have been prescribed aspirin 81 mg daily (aspirin 325 mg does not provide additional car diovascular protection and increases your risk of GI ulceration and bleed), clopidogrel 75 mg daily for 3 weeks then stop, and rosuvastatin 20 mg daily at bedtime for stroke prevention. You have been in normal sinus rhythm throughout her hospitalization without any evidence of arrhythmia. Recommend outpatient heart monitor for 1 month. Recommend physical, occupational and speech therapy evaluation and treatment for the next 2-[address] Please use a cane for ambulation. Please obtain and install shower chair and grab bars in shower for bathing. Also recommend being evaluated for rheumatoid arthritis and treated if present. Discharge orders & Medications Prescriptions: New clopidogrel 75 mg Tablet 75 mg PO DAILY Qty: 19 RF: 0 aspirin 81 mg Tablet,Delayed Release (Dr/Ec) 81 mg PO DAILY Qty: 30 RF: 0 rosuvastatin 10 mg Tablet 20 mg PO BEDTIME Qty: 30 RF: 0 Continued bupropion HCl [Wellbutrin SR] 150 mg Tablet Sustained-Release 12 Hr 150 mg PO DAILY RF: 0 Changed metoprolol succinate 50 mg Tablet Extended Release 24 Hr 25 mg PO DAILY Qty: 30 RF: 0 Follow up/Referrals: Katelynn Yeh DO [Primary Care Provider] - 1 Week Diet/Activity/Treatments Diet: Low-fat, Low-sodium and Low-cholesterol Activity: Activity as tolerated with cane and physical and occupational therapy Visit Report/Discharge Packet Instructions: The Mediterranean Diet and Good Health, DI for Stroke-Ischemic, Mediterranean Diet May Reduce the Risk of Stroke in People with High Risk o, Clopidogrel (By mouth), Rosuvastatin (By mouth) Visit Report Forms: Patient Portal/API, Stroke Signs & Symptoms Discharge Data Primary Care Provider: Katelynn Yeh Discharges patient from system. Discharge Date/Time: 06/20/19 12:30 Quality VTE Deep Vein Thrombosis/Pulmonary Embolism Present on Admission: No
--- NOTE | 2019-06-20 11:38 | PT.IPTN ---
Current Diagnoses Cerebral infarction, unspecified (06/18/19) Physical Therapy Treatment Note M2 PT-IP Current Condition Start: 06/19/19 12:25 Freq: NEEDED Status: Active Protocol: Document 06/19/19 10:47 AB (Rec: 06/19/19 12:49 AB [id number]) Physical Therapy Current Condition Current Condition Evaluation Date 06/19/19 Treatment Diagnosis CVA R sided weakness; difficulty in walking Onset Date 06/18/2019 Precautions Other Precautions falls M3 PT-IP Subjective Start: 06/19/19 12:25 Freq: NEEDED Status: Active Protocol: Document 06/20/19 09:13 MB (Rec: 06/20/19 11:35 MB [id number]) Subjective Physical Therapy Visit Type Type Treatment Note Visit Start Time 09:13 Visit Stop Time 09:40 Total Visit Minutes 27 Number of CREDIT UNION MANAGER Visits 0 Physical Therapy Visit Comments Patient Comments Pt states she is doing much better today. Therapy Pain Assessment Pain Present Pain Present Denied Pain M4 PT-IP Mobility and Gait Start: 06/19/19 12:25 Freq: NEEDED Status: Active Protocol: Document 06/20/19 09:13 MB (Rec: 06/20/19 11:35 MB [id number]) PT-Transfer Assessment Sit to and From Stand Sit to and from Stand Standby Assistance Equipment Transfer Assistive Device Gait Belt,Front Wheeled Walker Transfer Ability Level of Assist Standby Assistance Comments Mobility Comments Pt requires cues to perform sit to stand without holding onto walker first attempt. She is then able to perform 3 sets of sit to stand without UE support and with I. Gait Assessment Gait Gait Assistance Required: Standby Assistance Distance (Feet) 75 Assistive Devices Assistive Device Gait Belt,4 Wheeled Walker Comments Gait Comments 75'x2 with RW. Pt requires CGA initially and then mod I. She has decreased push off right foot as well as decreased heel strike. She gait trains 50'x1 with SPC left hand. Initial 10 steps wtih cues and CGA and then mod I. Stair Climbing Assessment Evaluation Level of Assist On Stairs Standby Assistance Devices Stair Climbing Assistive Devices Left Railing,Right Railing Technique/Endurance Stair Climbing Direction Ascend Stair Climbing Technique Step Over Step Number of Steps Climbed 3 Stair Climbing Set # Repetitions (reps) 1 Comments Stair Climbing Comments Pt is able to perform reciprocal gait on stairs today. PT-Balance Assessment Sitting Balance and Reactions Static Sitting Balance Ability Normal Dynamic Sitting Balance Ability Normal Standing Balance and Reactions Static Standing Balance Ability Good Dynamic Standing Balance Ability Poor Balance Tests Romberg 30 sec EO and EC Tandem Standing 1 sec left behind, unable right behind Functional Assessments Functional Tests 30 Seconds Sit to Stand Test 3 trials: 8 reps, 9 reps and then 10 reps M5 PT-IP Objective Assessments Start: 06/19/19 12:25 Freq: NEEDED Status: Active Protocol: Document 06/20/19 09:13 MB (Rec: 06/20/19 11:35 MB [id number]) Orientation Orientation/Cognition Level of Alertness Alert Orientation Name,Place,Situation Gross Range of Motion Lower Extremity ROM Impairments Decreased functional push off right foot with gait as well as heel strike. Pt has increased ankle instability/ work with sit to stands compared to left M6 PT-IP Treatment Start: 06/19/19 12:25 Freq: NEEDED Status: Active Protocol: Document 06/20/19 09:13 MB (Rec: 06/20/19 11:36 MB [id number]) Physical Therapy Treatment Other Treatments Other Treatment Performed Sit to stands Romberg EO EC Attempted Tandem, LOB Gait training with walker and cane Ed on acute rehab vs home with 24/7 superv and OPPT M7 PT-IP Assessment and Plan Start: 06/19/19 12:25 Freq: NEEDED Status: Active Protocol: Document 06/20/19 09:13 MB (Rec: 06/20/19 11:35 MB [id number]) PT Summary Assessment and Plan Potential Rehabilitation Potential Excellent Status of Condition at Evaluation Stable Summary Impairments Strength,Balance,Gait Assessment Summary Pt presents with much better transfers, balance and gait today. She does present with decreased functional strength LLE, greatest in ankle with gait as well as poor balance with Tandem stance. Romberg EO and EC at least 30 sec. Recommend 24 hour asst and PT at d/c. Pt is considering home vs rehab stay. Goals Bed Mobility Goal Independent Transfer Goal Independent,Cane Gait Goal Independent,Cane Gait Distance 100 Other Goals Ascend and descend 3 steps with 1 rail and reciprocal gait. 15 reps sit to folding machine operator 30 sec without UE support. Perform WNLs on DGI. Days to Meet Goals 10 Frequency of Treatment Frequency Of Treatment Twice a Day Treatment Plan Physical Therapy Treatment Plan Bed Mobility Training,Transfer Training,Gait Training, Therapeutic Exercise,Balance Retraining,Discharge Planning, Neuromuscular Re-ed, Coordination Retraining,Manual Therapy Other Recommendations and Next Treatment ambulation, stair climbing, Focus standing balance Recommendations To Nursing Amount of Assist Needed 1 Person Assist Discharge Recommendations PT Discharge Recommendations Home with 24/ Assist, Outpatient PT Equipment Needed for Home Before Cane Discharge Transportation Needs at Discharge Private Vehicle
[2019-06-20 12:00] VITALS: BP 141/90; PULSE 80
--- NOTE | 2019-06-20 12:41 | PC.NURSE ---
Discharge Pt denied pain. Up with cane and SBA. Pt no longer wishes to go to inpatient rehab, now wants to go home and do outpt rehab. pt continues with weakness on R side but states improved, speech is improved as well, no slurr or word finding difficulty observed. Per Gladys in HOUSE DECORATOR, pt only needs to do HOUSE DECORATOR at d/c if worsens, otherwise she is fine. Pt to have PT and OT at d/c. Pt has apt with PCP scheduled for next monday. Will contact PCP's office and see if they can push referrals through ahead of time prior to apt. PIV removed prior to d/c. Tele removed as well. Pt had ECHO at bedside, MD will call with results if needed. D/c instructions provided to pt and . Aware of when contact PCP for any additional questions or concerns. Left in w/c with RN escort to car with spouse. Pt states she took all belongings with her.
== END 2019-06-20 12:30 | disposition home or self-care (01) | DRG 65 ==
LOC: ED 20:16 → AC 06-19 07:37
PROVIDERS: Internal Medicine; Admitting Provider Nurse Practitioner Family; Emergency Provider Emergency Medicine; PCP Family Medicine; Visit Provider Nurse Practitioner Family
DX: I63.81 Other cerebral infarction due to occlusion or stenosis of small artery (principal); G81.91 Hemiplegia, unspecified affecting right dominant side; R47.81 Slurred speech; M21.371 Foot drop, right foot; I10 Essential (primary) hypertension; I44.0 Atrioventricular block, first degree; F41.9 Anxiety disorder, unspecified; F32.9 Major depressive disorder, single episode, unspecified; E78.5 Hyperlipidemia, unspecified; Z87.891 Personal history of nicotine dependence
CPT/HCPCS: 36415; 70450; 70496; 70498; 70548; 70553; 80048; 80053; 80061; 80320; 83036; 83690; 85025; 85610; 85730; 92522; 93005; 93306; 97110; 97112; 97116; 97162; 97165; 97530; 97535; 99285; A9579; J1644; Q9967

== ENCOUNTER → 2021-09-27 12:20 | Outpatient (CLI) | payer MEDICARE, OTHER, SELFPAY ==
[2021-09-27 13:17] LABS: Alanine Aminotransferase 20 IU/L (<35); Albumin Globulin Ratio 1.4 (1.0-2.8); Alkaline Phosphatase 69 U/L (38-126); Aspartate Aminotransferase 31 IU/L (14-36); BUN Creatinine Ratio 23.5 (6-22); Bilirubin Total 0.5 mg/dL (0.2-1.3); Blood Urea Nitrogen 16 mg/dL (7-17); C-Reactive Protein Quant < 0.5 mg/dL (<1.0); Calcium 8.9 mg/dL (8.4-10.2); Carbon Dioxide 29 mmol/L (22-32); Chloride 106 mmol/L (98-107); Cholesterol 130 mg/dL (140-199); Estimated Glomerular Filt Rate > 60 mL/min (>60); Globulin 2.9 g/dL (1.7-4.1); Glucose 93 mg/dL (80-110); HDL Cholesterol 76 mg/dL (40-60); HEMOLYSIS 26 (0-50); LDL Cholesterol Calculated 41 mg/dL (<100); Potassium 4.1 mmol/L (3.4-5.1); Sodium 138 mmol/L (137-145); Total Protein 6.9 g/dL (6.3-8.2); Triglycerides 67 mg/dL (35-150)
[2021-09-27 13:21] LABS: Rheumatoid Factor < 8.6 IU/mL (<12.0)
[2021-09-27 13:25] LABS: Erythrocyte Sedimentation Rate 20 MM/HR (0-20)
[2021-09-27 13:48] LABS: TSH w/ Reflex to FT4 1.88 uIU/mL (0.47-4.68)
== END ==
PROVIDERS: PCP Internal Medicine; Referring Provider Internal Medicine; Visit Provider Internal Medicine
DX: E78.2 Mixed hyperlipidemia (principal); I10 Essential (primary) hypertension; M25.50 Pain in unspecified joint
CPT/HCPCS: 36415; 80053; 80061; 84443; 85651; 86140; 86430

== ENCOUNTER → 2021-10-01 13:39 | Outpatient (CLI) | payer MEDICARE, OTHER, SELFPAY ==
[2021-10-05 08:10] LABS: Fecal Immunochemical Test Negative (Negative)
== END ==
PROVIDERS: PCP Internal Medicine; Referring Provider Internal Medicine; Visit Provider Internal Medicine
DX: Z12.11 Encounter for screening for malignant neoplasm of colon (principal)
CPT/HCPCS: 82274

== ENCOUNTER 2022-03-06 16:32 | Emergency (ER) | payer MEDICARE, OTHER, SELFPAY ==
[2022-03-06] VITALS (10 sets, daily range): BP systolic 125–162; BP diastolic 64–71; PULSE 55–68; RESP 13–24; TEMP 36.3; O2SAT 81–100; BMI 18.1
--- NOTE | 2022-03-06 16:35 | ED_ITS ---
HPI - Abdominal Pain <Roberto Man PA-C - Last Filed: 03/06/22 20:25> General Chief Complaint: Abdominal Pain Stated Complaint: abd pain, n/v/d Time Seen by Provider: 03/06/22 16:34 History of Present Illness HPI narrative: Patient is a 67-year-old female who presents to the emergency room today with complaint abdominal pain that started Monday. She initially had bronchoscopy done January 21 that was followed by receiving antibiotics on the . After starting the antibiotics she started to have diarrhea. Denies blood in diarrhea and describes it as being discolored. Discoloration includes black clear orange and other colors. States that it started after she started receiving Augmentin on March 01. States that her C difficile test was done and was negative on Monday of last week. States she took the initial antibiotics for 10 days with about a week took another 7 days of antibiotics. She describes the pain as being in the mid center of her abdomen and states it feels like a pressure that shoots down. States she has pain that is deep and made better by having a bowel movement made worse by not having bowel movements. Patient also states she does not have pain at this time that the pain subsided and the IV and normal saline was inserted and started. States she feels very dehydrated because over the last few weeks has been very difficult for her to keep fluids down. Denies nausea but states every time she eats goes straight through her comes out as liquid diarrhea. 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 Patient also states she almost passed out today while she was on the toilet. Denies syncope, states she felt like she was going to pass out and slowly went down to the floor and sat down. Patient states that right now she has no pain in her abdomen. But states when the pain at its worst is about a 10. Related Data Home Medications Medication Instructions Recorded Confirmed B Complex 1 tab PO DAILY 09/13/21 11/29/21 Co-Q10 1 tab PO BEDTIME 09/13/21 11/29/21 cholecalciferol (vitamin D3) 125 125 mcg PO DAILY 09/13/21 11/29/21 mcg (5,000 unit) capsule Previous Rx's Medication Instructions Recorded aspirin 81 mg tablet,delayed 81 mg PO DAILY #30 tabs 06/20/19 release acyclovir 800 mg tablet 800 mg PO QID PRN outbreak #60 tabs 09/13/21 estradiol 10 mcg vaginal tablet 10 mcg vaginal 2XW #24 tabs 09/13/21 (Vagifem) fluticasone propionate 115 2 puff inhalation BID #12 grams 09/13/21 mcg-salmeterol 21 mcg/actuation HFA inhaler (Advair HFA) atenolol 50 mg tablet 50 mg PO DAILY #90 tabs 09/23/21 clopidogrel 75 mg tablet 75 mg PO DAILY #90 tabs 09/23/21 losartan 50 mg tablet 50 mg PO BEDTIME #90 tabs 09/23/21 rosuvastatin 10 mg tablet 10 mg PO BEDTIME #90 tabs 09/23/21 naproxen 500 mg tablet 500 mg PO BID PRN pain #180 tabs 11/29/21 metronidazole 500 mg tablet 500 mg PO TID #42 tabs 03/03/22 methocarbamol 750 mg tablet 750 mg PO Q8H muscle cramping #15 03/06/22 tabs Allergies Allergy/AdvReac Type Severity Reaction Status Date / Time No Known Drug Allergies Allergy Verified 11/29/21 14:40 Review of Systems <Roberto Man PA-C - Last Filed: 03/06/22 20:25> Review of Systems Narrative: R.O.S.: General: No fever, chills or fatigue. Cardiovascular: No chest pain or palpitations Respiratory: No S.O.B. HEENT: No congestion, ear pain, rhinorrhea, sore throat or tinnitus Gastrointestinal: Abdominal pain and diarrhea : No urinary concerns Skin: No rash or associated abnormalities Musculoskeletal: No pain in muscles or joints, no limitation of range of motion, no paresthesia or numbness. ?? Neurological: Awake, alert and in not apparent distress. No Headaches, changes in vision or other related neurological concerns. Patient History <Roberto Man PA-C - Last Filed: 03/06/22 20:25> Medical History (Updated 03/06/22 @ 17:42 by Roberto Man PA-C) Arrhythmia COPD (chronic obstructive pulmonary disease) COVID-19 (~11/2021) Depression Essential hypertension Former smoker Mixed hyperlipidemia Osteoarthritis Status post CVA (~06/2019) Transient cerebral ischemia Surgical History History of breast surgery (~1995) Status post Mohs surgery (~2009) Family History Father FH: CABG (coronary artery bypass surgery) Mother Atrial fibrillation Pacemaker Social History marital status: household members: spouse lives independently: Yes Smoking Status: Former smoker alcohol intake: current Smoking Status: Former smoker alcohol intake frequency: holidays/special occasions only Exam <Roberto Man PA-C - Last Filed: 03/06/22 20:25> Narrative Exam Narrative: Physical Exam: ? General: normal appearance, well developed, well nourished, alert, and awake. Not in acute distress. ? Head: Normocephalic, no lesions. Chest: Lungs CTAB, no rales, rhonchi or wheezes. ?? Heart: RRR, no murmurs, rubs or gallops. Eyes: PERRLA, EOM's full, conjunctivae clear. ? Neuro: Physiological, no localizing findings, CN3-12 intact. ?? Extremities: Warm, well perfused, FROM, no deformities, no edema. ?? Skin: Normal, no rashes, no lesions noted. ?? PSYCHIATRIC: The mood is good, no blunted affect. Speech is clear. Thought process is linear, thought content is appropriate. The voice is without significant inflection. Gastrointestinal: Soft; NT; ND; Pos BS with Neg. rebound tenderness. No scars or major deformities noted on Visual Inspection. Initial Vital Signs Initial Vital Signs: Vital Signs Pulse Rate 58 L 03/06/22 16:42 Respiratory Rate 23 03/06/22 16:42 Pulse Oximetry 99 03/06/22 16:42 Oxygen Delivery Method 03/06/22 16:42 <Mica Olivares DO - Last Filed: 03/13/22 04:39> Initial Vital Signs Initial Vital Signs: Vital Signs Pulse Rate 58 L 03/06/22 16:42 Respiratory Rate 23 03/06/22 16:42 Pulse Oximetry 99 03/06/22 16:42 Oxygen Delivery Method 03/06/22 16:42 Course <Roberto Man PA-C - Last Filed: 03/06/22 20:25> Orders Ordered: Discontinued Medications Sodium Chloride (Normal Saline 0.9%) 1,000 mls @ 1,000 mls/hr IV BOLUS ONE Stop: 03/06/22 18:24 Last Infusion: 03/06/22 19:24 Dose: 0 mls/hr Documented By: Admin: 03/06/22 17:57 Dose: 1,000 mls/hr Documented By: ARTIE Vital Signs Vital signs: Vital Signs - 8 hr 03/06/22 16:44 03/06/22 16:42 03/06/22 17:00 Temperature 97.4 F L Pulse Rate 55 L 58 L 68 Respiratory Rate 18 23 22 Blood Pressure 130/64 Pulse Oximetry 99 99 96 Oxygen Delivery Method Room Air Room Air Room Air 03/06/22 17:30 03/06/22 18:00 03/06/22 18:33 Temperature Pulse Rate 62 64 65 Respiratory Rate 24 23 24 Blood Pressure Pulse Oximetry 100 100 81 L Oxygen Delivery Method Room Air Room Air 03/06/22 18:34 03/06/22 18:34 03/06/22 19:00 Temperature Pulse Rate 61 Respiratory Rate 13 Blood Pressure 135/65 125/70 Pulse Oximetry 98 Oxygen Delivery Method 03/06/22 19:00 03/06/22 19:30 03/06/22 19:30 Temperature Pulse Rate 62 63 Respiratory Rate Blood Pressure 145/71 H Pulse Oximetry 99 99 Oxygen Delivery Method Room Air Room Air <Mica Olivares DO - Last Filed: 03/13/22 04:39> Orders Ordered: Discontinued Medications Sodium Chloride (Normal Saline 0.9%) 1,000 mls @ 1,000 mls/hr IV BOLUS ONE Stop: 03/06/22 18:24 Last Infusion: 03/06/22 19:24 Dose: 0 mls/hr Documented By: Admin: 03/06/22 17:57 Dose: 1,000 mls/hr Documented By: ARTIE Vital Signs Vital signs: Vital Signs - 8 hr 03/06/22 16:44 03/06/22 16:42 03/06/22 17:00 Temperature 97.4 F L Pulse Rate 55 L 58 L 68 Respiratory Rate 18 23 22 Blood Pressure 130/64 Pulse Oximetry 99 99 96 Oxygen Delivery Method Room Air Room Air Room Air 03/06/22 17:30 03/06/22 18:00 03/06/22 18:33 Temperature Pulse Rate 62 64 65 Respiratory Rate 24 23 24 Blood Pressure Pulse Oximetry 100 100 81 L Oxygen Delivery Method Room Air Room Air 03/06/22 18:34 03/06/22 18:34 03/06/22 19:00 Temperature Pulse Rate 61 Respiratory Rate 13 Blood Pressure 135/65 125/70 Pulse Oximetry 98 Oxygen Delivery Method 03/06/22 19:00 03/06/22 19:30 03/06/22 19:30 Temperature Pulse Rate 62 63 Respiratory Rate Blood Pressure 145/71 H Pulse Oximetry 99 99 Oxygen Delivery Method Room Air Room Air MDM - Abdominal Pain <Roberto Man PA-C - Last Filed: 03/06/22 20:25> Lab Data Result diagrams: 03/06/22 16:54 03/06/22 16:54 Labs: Lab Results 03/06/22 03/06/22 03/06/22 Range/Units 16:54 16:54 17:25 WBC 16.1 H (4.5-11.0) X10^3/uL RBC 3.84 L (4.0-5.2) X10^6/uL Hgb 11.5 L (12.0-16.0) g/dL Hct 34.6 L (36-46) % MCV 90.0 (80-100) fL MCH 29.8 (26-34) PG MCHC 33.1 (30-36) % RDW 13.7 (11.6-14.8) % Plt Count 434 H (150-400) X10^3/uL Neut % (Auto) 89.7 H (50-75) % Lymph % (Auto) 3.9 L (25-40) % [place] % (Auto) 5.5 (3-14) % Eos % (Auto) 0.2 L (2-4) % Baso % (Auto) 0.7 (0-2) % Neut # (Auto) 04197 H (4882-8386) /uL Lymph # (Auto) 600 L (7889-6261) /uL [place] # (Auto) 900 (0-900) /uL Eos # (Auto) 0 (0-450) /uL Baso # (Auto) 100 (0-100) /uL PT 12.6 (10.1-12.7) SECONDS INR 1.1 (0.9-1.3) APTT 26 (26-36) SECONDS Sodium 139 (137-145) mmol/L Potassium 4.0 (3.4-5.1) mmol/L Chloride 106 (98-107) mmol/L Carbon Dioxide 28 (22-32) mmol/L BUN 10 (7-17) mg/dL Creatinine 0.54 (0.52-1.04) mg/dL Estimated GFR > 60 (>60) mL/min BUN/Creatinine Ratio 18.5 (6-22) Glucose 84 (80-110) mg/dL Calcium 7.8 L (8.4-10.2) mg/dL Magnesium (1.6-2.3) mg/dL Total Bilirubin 0.1 L (0.2-1.3) mg/dL AST 22 (14-36) IU/L ALT 22 (<35) IU/L Alkaline Phosphatase 74 (38-126) U/L Total Creatine Kinase (30-135) U/L CK-MB (CK-2) CK-MB (CK-2) Rel Index Troponin I (0.01-0.034) ng/mL Total Protein 6.0 L (6.3-8.2) g/dL Albumin 3.2 L (3.5-5.0) g/dL Globulin 2.8 (1.7-4.1) g/dL Albumin/Globulin Ratio 1.1 (1.0-2.8) Lipase 32 (23-300) U/L 03/06/22 03/06/22 Range/Units 17:25 17:29 WBC (4.5-11.0) X10^3/uL RBC (4.0-5.2) X10^6/uL Hgb (12.0-16.0) g/dL Hct (36-46) % MCV (80-100) fL MCH (26-34) PG MCHC (30-36) % RDW (11.6-14.8) % Plt Count (150-400) X10^3/uL Neut % (Auto) (50-75) % Lymph % (Auto) (25-40) % [place] % (Auto) (3-14) % Eos % (Auto) (2-4) % Baso % (Auto) (0-2) % Neut # (Auto) (9761-9776) /uL Lymph # (Auto) (6185-4145) /uL [place] # (Auto) (0-900) /uL Eos # (Auto) (0-450) /uL Baso # (Auto) (0-100) /uL PT (10.1-12.7) SECONDS INR (0.9-1.3) APTT (26-36) SECONDS Sodium (137-145) mmol/L Potassium (3.4-5.1) mmol/L Chloride (98-107) mmol/L Carbon Dioxide (22-32) mmol/L BUN (7-17) mg/dL Creatinine (0.52-1.04) mg/dL Estimated GFR (>60) mL/min BUN/Creatinine Ratio (6-22) Glucose (80-110) mg/dL Calcium (8.4-10.2) mg/dL Magnesium 1.8 (1.6-2.3) mg/dL Total Bilirubin (0.2-1.3) mg/dL AST (14-36) IU/L ALT (<35) IU/L Alkaline Phosphatase (38-126) U/L Total Creatine Kinase 35 (30-135) U/L CK-MB (CK-2) TNP CK-MB (CK-2) Rel Index TNP Troponin I < 0.012 (0.01-0.034) ng/mL Total Protein (6.3-8.2) g/dL Albumin (3.5-5.0) g/dL Globulin (1.7-4.1) g/dL Albumin/Globulin Ratio (1.0-2.8) Lipase (23-300) U/L Point of care testing: Urine Dip Bedside Urine Glucose Negative Bedside Urine Bilirubin - Negative Bedside Urine Ketone - Negative Urine Specific [place] 1.015 Bedside Urine Occult Blood - Negative Bedside Urine pH 6.0 Bedside Urine Protein - Negative Bedside Urine Urobilinogen - Negative Bedside Urine Nitrite - Negative Bedside Urine Leukocytes - Negative Esterase Imaging Data Chest x-ray: Radiologist's Impression: [address] [address] XRay Report Signed Patient: Emma Villanueva MR#: [id number] : 1955 Acct:[id number] Age/Sex: 67 / F Date of Service: 03/06/22 Loc: ED Accession Number: [id number] ?? Procedure: XR chest 2V Ordering Provider: Roberto Man P.A-C PROCEDURE:? XR CHEST 2V ? INDICATIONS:? Abdominal pain and near syncope ? TECHNIQUE:? 2 views of the chest were acquired.? ? COMPARISON:? None. ? FINDINGS:? ? Surgical changes and devices:? None.? ? Lungs and pleura:? There is a cavitary process present in the right upper lobe with an air-fluid level and subjacent nodular density.? No pleural effusions or pneumothorax.? ? Mediastinum:? Mediastinal contours are normal.? Heart size is normal.? ? Bones and chest wall:? No suspicious bony abnormalities.? Soft tissues appear unremarkable.? ? IMPRESSION:? Findings most likely representing cavitary pneumonia in the right upper lobe. ? Comment:? Recommend CT chest with contrast. ? ? Dictated by: Erich Mireles M.D. on 03/06/2022 at 18:03 ? ? Approved by: Erich Mireles M.D. on 03/06/2022 at 18:04 ? MDM Narrative Medical decision making narrative: Patient presents to the emergency room with complaint of abdominal pain diarrhea and near-syncope. Patient's pain has totally resolved after receiving IV fluid in transport. Labs and diagnostics were ordered today to rule out cardiac or pulmonary etiologies that would relate to the near syncopal episode, diarrhea and abdominal pain. White blood cell count was elevated and labs were then ordered to include urinalysis POC and stool cultures and temp isolate the source of infection. Discussed anemia near syncopal episode and potential need for rectal exam with patient. Patient declined a rectal exam at this time stating will follow with her primary care provider regarding her anemia. Nurse collected and disposed of stool sample stating was an adequate amount. Patient unable to produce more stool at this time. Abdomen and pelvic ultrasound ordered. Abdominal pelvic ultrasound was done. Patient states she wanted to be discharged now and did not want to await results. Patient was discharged and advised to contact emergency department should any urgent concerns arise. Pat ient also advised to wait official read and have those results taken to her primary care provider who can evaluate and possibly refer her to GI. Patient agrees with plan <Mica Olivares, - Last Filed: 03/13/22 04:39> Lab Data Labs: Lab Results 03/06/22 03/06/22 03/06/22 Range/Units 16:54 16:54 17:25 WBC 16.1 H (4.5-11.0) X10^3/uL RBC 3.84 L (4.0-5.2) X10^6/uL Hgb 11.5 L (12.0-16.0) g/dL Hct 34.6 L (36-46) % MCV 90.0 (80-100) fL MCH 29.8 (26-34) PG MCHC 33.1 (30-36) % RDW 13.7 (11.6-14.8) % Plt Count 434 H (150-400) X10^3/uL Neut % (Auto) 89.7 H (50-75) % Lymph % (Auto) 3.9 L (25-40) % [place] % (Auto) 5.5 (3-14) % Eos % (Auto) 0.2 L (2-4) % Baso % (Auto) 0.7 (0-2) % Neut # (Auto) 16281 H (3626-5458) /uL Lymph # (Auto) 600 L (9514-4826) /uL [place] # (Auto) 900 (0-900) /uL Eos # (Auto) 0 (0-450) /uL Baso # (Auto) 100 (0-100) /uL PT 12.6 (10.1-12.7) SECONDS INR 1.1 (0.9-1.3) APTT 26 (26-36) SECONDS Sodium 139 (137-145) mmol/L Potassium 4.0 (3.4-5.1) mmol/L Chloride 106 (98-107) mmol/L Carbon Dioxide 28 (22-32) mmol/L BUN 10 (7-17) mg/dL Creatinine 0.54 (0.52-1.04) mg/dL Estimated GFR > 60 (>60) mL/min BUN/Creatinine Ratio 18.5 (6-22) Glucose 84 (80-110) mg/dL Calcium 7.8 L (8.4-10.2) mg/dL Magnesium (1.6-2.3) mg/dL Total Bilirubin 0.1 L (0.2-1.3) mg/dL AST 22 (14-36) IU/L ALT 22 (<35) IU/L Alkaline Phosphatase 74 (38-126) U/L Total Creatine Kinase (30-135) U/L CK-MB (CK-2) CK-MB (CK-2) Rel Index Troponin I (0.01-0.034) ng/mL Total Protein 6.0 L (6.3-8.2) g/dL Albumin 3.2 L (3.5-5.0) g/dL Globulin 2.8 (1.7-4.1) g/dL Albumin/Globulin Ratio 1.1 (1.0-2.8) Lipase 32 (23-300) U/L 03/06/22 03/06/22 Range/Units 17:25 17:29 WBC (4.5-11.0) X10^3/uL RBC (4.0-5.2) X10^6/uL Hgb (12.0-16.0) g/dL Hct (36-46) % MCV (80-100) fL MCH (26-34) PG MCHC (30-36) % RDW (11.6-14.8) % Plt Count (150-400) X10^3/uL Neut % (Auto) (50-75) % Lymph % (Auto) (25-40) % [place] % (Auto) (3-14) % Eos % (Auto) (2-4) % Baso % (Auto) (0-2) % Neut # (Auto) (8556-2377) /uL Lymph # (Auto) (9771-0134) /uL [place] # (Auto) (0-900) /uL Eos # (Auto) (0-450) /uL Baso # (Auto) (0-100) /uL PT (10.1-12.7) SECONDS INR (0.9-1.3) APTT (26-36) SECONDS Sodium (137-145) mmol/L Potassium (3.4-5.1) mmol/L Chloride (98-107) mmol/L Carbon Dioxide (22-32) mmol/L BUN (7-17) mg/dL Creatinine (0.52-1.04) mg/dL Estimated GFR (>60) mL/min BUN/Creatinine Ratio (6-22) Glucose (80-110) mg/dL Calcium (8.4-10.2) mg/dL Magnesium 1.8 (1.6-2.3) mg/dL Total Bilirubin (0.2-1.3) mg/dL AST (14-36) IU/L ALT (<35) IU/L Alkaline Phosphatase (38-126) U/L Total Creatine Kinase 35 (30-135) U/L CK-MB (CK-2) TNP CK-MB (CK-2) Rel Index TNP Troponin I < 0.012 (0.01-0.034) ng/mL Total Protein (6.3-8.2) g/dL Albumin (3.5-5.0) g/dL Globulin (1.7-4.1) g/dL Albumin/Globulin Ratio (1.0-2.8) Lipase (23-300) U/L Point of care testing: Urine Dip Bedside Urine Glucose Negative Bedside Urine Bilirubin - Negative Bedside Urine Ketone - Negative Urine Specific [place] 1.015 Bedside Urine Occult Blood - Negative Bedside Urine pH 6.0 Bedside Urine Protein - Negative Bedside Urine Urobilinogen - Negative Bedside Urine Nitrite - Negative Bedside Urine Leukocytes - Negative Esterase ECG Data Attestation: I personally reviewed and interpreted this ECG as follows: Prior ECG tracings: available for review Interpretation: Sinus rhythm rate of 72, LA 186 QRS of 68 QTC of 451. Patient's P wave enlarged suggesting possible left atrial enlargement but no acute changes from 06/18/2019 EKG. Discharge Plan Departure Patient Disposition: Home Clinical Impression: Abdominal pain, Diarrhea, Near syncope Instructions: DI for Syncope in Adults (Fainting), DI for Abdominal Pain-Adult, DI for Diarrhea and Traveler's Diarrhea -- Adult Activity Restrictions/Additional Instructions: *You have been diagnosed with abdominal pain diarrhea and near syncope. Diagnostics discovered a mild elevation in white blood cell count but physical exam and vitals were not concerning for emergent etiology. Ultrasound of your abdomen and pelvis was done and was also unremarkable for any urgent emergent etiology. I suggest she follow up with your primary care provider for referral to GI in regards to diarrhea periodic abdominal pain and finding of anemia. I have also ordered a muscle relaxer to help with your muscle spasms. Please return to the emergency room if any emergent concerns arise. *What to do: *Please continue to take your regular medications as directed. [x] New medication prescriptions sent to your pharmacy: [ ] [ ] New medication written as a paper prescription [ ] No new medications given *Please follow up with your primary care provider in 2-3 days, call for an appointment. Let them know you were seen in the Emergency Department and that we ask that you be seen in follow up. We will electronically transmit a record of today's note if your PCP is in our system *If you do not have a primary care provider please contact the [facility] Resource line at [phone]. They will ask some questions about your medical history and help get you set up with a doctor in the community. *Return to Emergency Department if you should have any new, worsening or concerning symptoms, such as [fever greater than 101 F, shaking chills, worse leatha pain, persistent vomiting or other bothersome symptoms] Prescriptions: New methocarbamol 750 mg tablet 750 mg PO Q8H Qty: 15 0RF No Action atenolol 50 mg tablet 50 mg PO DAILY Qty: 90 3RF clopidogrel 75 mg tablet 75 mg PO DAILY Qty: 90 3RF losartan 50 mg tablet 50 mg PO BEDTIME Qty: 90 3RF rosuvastatin 10 mg tablet 10 mg PO BEDTIME Qty: 90 3RF metronidazole 500 mg tablet 500 mg PO TID Qty: 42 1RF Co-Q10 100 mg 1 tab PO BEDTIME cholecalciferol (vitamin D3) 125 mcg (5,000 unit) capsule 125 mcg PO DAILY B Complex 100 mg 1 tab PO DAILY acyclovir 800 mg tablet 800 mg PO QID PRN (Reason: outbreak) Qty: 60 3RF Rx Instructions: For 7 days when patient has flare up // space evenly during waking hours estradiol [Vagifem] 10 mcg tablet 10 mcg vaginal 2XW Qty: 24 3RF Advair HFA 115-21 mcg/actuation HFA aerosol inhaler 2 puff inhalation BID Qty: 12 3RF naproxen 500 mg tablet 500 mg PO BID PRN (Reason: pain) Qty: 180 3RF aspirin 81 mg Tablet,Delayed Release (Dr/Ec) 81 mg PO DAILY Qty: 30 0RF Referrals: Faisal Chavis MD [Primary Care Provider] - Visit Report Forms: Patient Portal/API <Mica Olivares DO - Last Filed: 03/13/22 04:39> Cosign ED Attending Cosignature Attestation: I was immediately available in the department for consultation. Documentation has been reviewed.
--- NOTE | 2022-03-06 17:15 | PC.NURSE ---
Pt came in via EMS with abdominal pain, nausea, vomiting and diarrhea for two months now. States she had a bronchoscopy done in January for a lesion and when they removed it and cleaned it out, I got a lot of fungus and bacteria in my lungs. They put me on two antibiotics and I got done February 15. Since starting the antibiotics, I have had nausea and about 10 squirts of watery stool everyday, and today I threw up four times. I also felt really lightheaded and decided to call EMS.
--- NOTE | 2022-03-06 17:25 | DI.RAD.S_ITS ---
PROCEDURE: XR CHEST 2V INDICATIONS: Abdominal pain and near syncope TECHNIQUE: 2 views of the chest were acquired. COMPARISON: None. FINDINGS: Surgical changes and devices: None. Lungs and pleura: There is a cavitary process present in the right upper lobe with an air-fluid level and subjacent nodular density. No pleural effusions or pneumothorax. Mediastinum: Mediastinal contours are normal. Heart size is normal. Bones and chest wall: No suspicious bony abnormalities. Soft tissues appear unremarkable. IMPRESSION: Findings most likely representing cavitary pneumonia in the right upper lobe. Comment: Recommend CT chest with contrast. Dictated by: Erich Mireles M.D. on 03/06/2022 at 18:03 Approved by: Erich Mireles M.D. on 03/06/2022 at 18:04
[2022-03-06 17:50] LABS: Add Manual Diff / Slide Review NO; Basophils Absolute Auto 100 /uL (0-100); Basophils Percent Auto 0.7 % (0-2); Eosinophils Absolute Auto 0 /uL (0-450); Eosinophils Percent Auto 0.2 % (2-4); Hematocrit 34.6 % (36-46); Hemoglobin 11.5 g/dL (12.0-16.0); Lymphocytes Absolute Auto 600 /uL (1100-4500); Lymphocytes Percent Auto 3.9 % (25-40); Mean Corpuscular HGB Conc 33.1 % (30-36); Mean Corpuscular Hemoglobin 29.8 PG (26-34); Monocytes Absolute Auto 900 /uL (0-900); Monocytes Percent Auto 5.5 % (3-14); Neutrophils Absolute Auto 14400 /uL (1500-7000); Neutrophils Percent Auto 89.7 % (50-75); Platelet Count 434 X10^3/uL (150-400); Red Blood Cell Count 3.84 X10^6/uL (4.0-5.2); Red Cell Distribution Width 13.7 % (11.6-14.8); White Blood Cell Count 16.1 X10^3/uL (4.5-11.0)
[2022-03-06] MEDS: SODIUM CHLORIDE 0.9% 1,000 ML 1000 ML IV (17:57)
[2022-03-06 18:00] LABS: INR 1.1 (0.9-1.3); Prothrombin Time 12.6 SECONDS (10.1-12.7)
[2022-03-06 18:02] LABS: PTT Partial Thromboplastin Tim 26 SECONDS (26-36)
[2022-03-06 18:03] LABS: Alanine Aminotransferase 22 IU/L (<35); Albumin 3.2 g/dL (3.5-5.0); Albumin Globulin Ratio 1.1 (1.0-2.8); Alkaline Phosphatase 74 U/L (38-126); Aspartate Aminotransferase 22 IU/L (14-36); BUN Creatinine Ratio 18.5 (6-22); Bilirubin Total 0.1 mg/dL (0.2-1.3); Blood Urea Nitrogen 10 mg/dL (7-17); Calcium 7.8 mg/dL (8.4-10.2); Carbon Dioxide 28 mmol/L (22-32); Chloride 106 mmol/L (98-107); Estimated Glomerular Filt Rate > 60 mL/min (>60); Globulin 2.8 g/dL (1.7-4.1); Glucose 84 mg/dL (80-110); HEMOLYSIS < 15 (0-50); Lipase 32 U/L (23-300); Sodium 139 mmol/L (137-145)
[2022-03-06 18:16] LABS: Creatine Kinase 35 U/L (30-135)
[2022-03-06 18:16] LABS: Magnesium 1.8 mg/dL (1.6-2.3)
[2022-03-06 18:29] LABS: Troponin I < 0.012 ng/mL (0.01-0.034)
--- NOTE | 2022-03-06 18:41 | DI.US.S_ITS ---
PROCEDURE: US PELVIC COMPLETE INDICATIONS: PAIN; DIARRHEA X 2 MONTHS TECHNIQUE: Real-time scanning was performed of the pelvic organs, with image documentation. Additional endovaginal scanning was necessary due to incomplete visualization of the adnexal and endometrial structures by transabdominal scanning. COMPARISON: None. FINDINGS: Uterus: Uterus is anteverted and measures 3.7 x 1.5 x 3.7 cm. Endometrium measures up to 0.2 cm. Ovaries: The ovaries were not discretely visualized. No adnexal masses identified. Other: There is a small amount of nonspecific free fluid in the pelvis IMPRESSION: 1. Small amount of free fluid is abnormal in a postmenopausal female. Findings are nonspecific and may be reactive. 2. Ovaries not visualized sonographically. No definite adnexal masses. We strive to produce accurate, complete, and clear reports of imaging services. To assist us in improving patient care, this report was composed using standard report templates and voice recognition software. Therefore, it may contain abnormal punctuation, insertions and/or omissions. Occasional wrong-word or sound-alike substitutions may occur. Though we review the report and make efforts to correct it, we do recommend that the report be read carefully in proper context to recognize any text inaccuracies. Dictated by: John Mcclellan M.D. on 03/06/2022 at 20:28 Approved by: John Mcclellan M.D. on 03/06/2022 at 20:34
--- NOTE | 2022-03-06 18:41 | DI.US.S_ITS ---
PROCEDURE: US ABDOMEN COMPLETE INDICATIONS: PAIN, DIARRHEA X 2 MONTHS TECHNIQUE: Real-time scanning was performed of the abdominal and retroperitoneal organs, with image documentation. COMPARISON: None. FINDINGS: Liver: Liver is normal in size and homogeneous in echotexture. Gallbladder: Gallbladder demonstrates no stones, wall thickening, or pericholecystic fluid. Biliary ducts: Intrahepatic bile ducts are non-dilated. Extrahepatic bile duct caliber measures 6 mm. Normal is 6-7 mm or less in diameter, or 10 mm or less post-cholecystectomy. Pancreas: Visualized portions of the pancreas are sonographically normal. Spleen: Spleen is normal in size and homogeneous in echotexture. Kidneys: Right kidney measures 9.9 cm long; left kidney measures 10.7 cm long. No hydronephrosis. Aorta: Visualized aorta is normal in caliber at less than 3 cm. Iliacs: Proximal common iliac arteries are normal in caliber at less than 2.5 cm. IVC: Intrahepatic inferior vena cava is patent. Miscellaneous: No free abdominal fluid. IMPRESSION: 1. No acute intra-abdominal sonographic abnormality. Dictated by: John Mcclellan M.D. on 03/06/2022 at 20:19 Approved by: John Mcclellan M.D. on 03/06/2022 at 20:22
--- NOTE | 2022-03-06 19:24 | PC.NURSE ---
Pt attempted to provide stool sample, insufficient amount obtained, [facility]OGEL aware, pt educated on order for stool culture, states she does not feel need to have a stool at this time.
== END 2022-03-06 20:41 | disposition home or self-care (01) ==
PROVIDERS: Emergency Provider Physician Assistant; PCP Internal Medicine
DX: R10.9 Unspecified abdominal pain (principal); R19.7 Diarrhea, unspecified; R55 Syncope and collapse
CPT/HCPCS: 36415; 71046; 76700; 76830; 76856; 80053; 81003; 82550; 83690; 83735; 84484; 85025; 85610; 85730; 93005; 96360; 99284

== ENCOUNTER → 2022-11-07 11:31 | Outpatient (CLI) | payer MEDICARE, OTHER, SELFPAY ==
[2022-11-07 13:00] LABS: Add Manual Diff / Slide Review NO; Basophils Absolute Auto 0 /uL (0-100); Basophils Percent Auto 0.7 % (0-2); Eosinophils Absolute Auto 100 /uL (0-450); Eosinophils Percent Auto 1.7 % (2-4); Hematocrit 36.6 % (36-46); Hemoglobin 12.3 g/dL (12.0-16.0); Lymphocytes Absolute Auto 1200 /uL (1100-4500); Lymphocytes Percent Auto 17.6 % (25-40); Mean Corpuscular HGB Conc 33.6 % (30-36); Mean Corpuscular Hemoglobin 31.5 PG (26-34); Mean Corpuscular Volume 93.7 fL (80-100); Monocytes Absolute Auto 500 /uL (0-900); Monocytes Percent Auto 6.9 % (3-14); Neutrophils Absolute Auto 5200 /uL (1500-7000); Neutrophils Percent Auto 73.1 % (50-75); Platelet Count 338 X10^3/uL (150-400); Red Blood Cell Count 3.91 X10^6/uL (4.0-5.2); Red Cell Distribution Width 13.8 % (11.6-14.8); White Blood Cell Count 7.1 X10^3/uL (4.5-11.0)
[2022-11-07 13:22] LABS: Alanine Aminotransferase 26 IU/L (<35); Albumin 3.8 g/dL (3.5-5.0); Albumin Globulin Ratio 1.4 (1.0-2.8); Alkaline Phosphatase 91 U/L (38-126); Aspartate Aminotransferase 28 IU/L (14-36); BUN Creatinine Ratio 20.6 (6-22); Bilirubin Total 0.5 mg/dL (0.2-1.3); Blood Urea Nitrogen 13 mg/dL (7-17); Calcium 8.9 mg/dL (8.4-10.2); Carbon Dioxide 30 mmol/L (22-32); Chloride 105 mmol/L (98-107); Cholesterol 143 mg/dL (140-199); Estimated Glomerular Filt Rate > 60 mL/min (>60); Globulin 2.7 g/dL (1.7-4.1); Glucose 87 mg/dL (80-110); HDL Cholesterol 75 mg/dL (40-60); HEMOLYSIS < 15 (0-50); LDL Cholesterol Calculated 59 mg/dL (<100); Potassium 4.3 mmol/L (3.4-5.1); Sodium 139 mmol/L (137-145); Total Protein 6.5 g/dL (6.3-8.2); Triglycerides 46 mg/dL (35-150)
== END ==
PROVIDERS: PCP Internal Medicine; Referring Provider Internal Medicine; Visit Provider Internal Medicine
DX: E78.2 Mixed hyperlipidemia (principal); A31.0 Pulmonary mycobacterial infection; I10 Essential (primary) hypertension; J98.4 Other disorders of lung
CPT/HCPCS: 36415; 80053; 80061; 85025

== ENCOUNTER → 2024-03-14 14:35 | Outpatient (CLI) | payer MEDICARE, OTHER, SELFPAY ==
[2024-03-14 15:12] LABS: Add Manual Diff / Slide Review NO; Basophils Absolute Auto 100 /uL (0-100); Basophils Percent Auto 0.7 % (0-2); Eosinophils Absolute Auto 100 /uL (0-450); Eosinophils Percent Auto 1.7 % (2-4); Hematocrit 38.7 % (36-46); Lymphocytes Absolute Auto 1700 /uL (1100-4500); Lymphocytes Percent Auto 19.4 % (25-40); Mean Corpuscular HGB Conc 33.5 % (30-36); Mean Corpuscular Hemoglobin 31.8 PG (26-34); Mean Corpuscular Volume 94.9 fL (80-100); Monocytes Absolute Auto 600 /uL (0-900); Monocytes Percent Auto 6.8 % (3-14); Neutrophils Absolute Auto 6200 /uL (1500-7000); Neutrophils Percent Auto 71.4 % (50-75); Platelet Count 418 X10^3/uL (150-400); Red Blood Cell Count 4.08 X10^6/uL (4.0-5.2); Red Cell Distribution Width 13.5 % (11.6-14.8); White Blood Cell Count 8.6 X10^3/uL (4.5-11.0)
[2024-03-14 15:28] LABS: Alanine Aminotransferase 16 IU/L (<35); Albumin Globulin Ratio 1.7 (1.0-2.8); Alkaline Phosphatase 96 U/L (38-126); Aspartate Aminotransferase 27 IU/L (14-36); BUN Creatinine Ratio 18.1 (6-22); Bilirubin Total 0.5 mg/dL (0.2-1.3); Blood Urea Nitrogen 13 mg/dL (7-17); Calcium 9.5 mg/dL (8.4-10.2); Carbon Dioxide 27 mmol/L (22-32); Chloride 103 mmol/L (98-107); Cholesterol 155 mg/dL (140-199); Estimated Glomerular Filt Rate > 60 mL/min (>60); Globulin 2.3 g/dL (1.7-4.1); Glucose 92 mg/dL (80-110); HDL Cholesterol 81 mg/dL (40-60); HEMOLYSIS 19 (0-50); LDL Cholesterol Calculated 60 mg/dL (<100); Potassium 4.5 mmol/L (3.4-5.1); Sodium 137 mmol/L (137-145); Total Protein 6.3 g/dL (6.3-8.2); Triglycerides 69 mg/dL (35-150)
[2024-03-14 16:02] LABS: Erythrocyte Sedimentation Rate 13 MM/HR (0-20)
== END ==
PROVIDERS: PCP Internal Medicine; Referring Provider Internal Medicine; Visit Provider Internal Medicine
DX: I10 Essential (primary) hypertension (principal); E78.2 Mixed hyperlipidemia; J44.9 Chronic obstructive pulmonary disease, unspecified; E78.5 Hyperlipidemia, unspecified; A31.0 Pulmonary mycobacterial infection; R91.1 Solitary pulmonary nodule
CPT/HCPCS: 36415; 80053; 80061; 85025; 85651